=== PATIENT | male | born 1980 | race Caucasian/White ===

== ENCOUNTER 2023-10-14 09:49 | Outpatient (AMB) | payer OTHER, SELFPAY ==
--- NOTE | 2023-10-14 09:50 | A.OFFVIS_ITS ---
Intake Vital Signs 10/14/23 10:08 Height 6 ft 4 in BP 134/80 Blood Pressure Location Lt brachial Position Sitting Pulse 87 Pulse Source Pulse Oximeter Pulse Oximetry (%) 99 Oxygen Delivery Method Room Air Intake Visit Reasons: ENP-Left lower extremity numbess-LVm to c/b to r/s Intake Note: Patient presents for ENP-Left lower extremity numbness. Allergies cephalexin Allergy (Intermediate, Verified 10/14/23 10:07) Rash Keflex Allergy (Unknown, Uncoded 08/13/19 00:00) itching HPI HPI Comments History of Present Illness Details 43 y/o male patient presents for new in- person visit for bilateral lower extremities' numbness. Pt has hx of DVT on Eliquis and referred to vascular but missed the appointment. Pt reports constant, bilateral lower extremities numbness, L>R, from knee to feet. It has been for a while, and he feels the numbness has more progressed lately. Pt also reports lower back pain and knee pain, his primary care ordered Xray but never done. Pt states that something did on his leg to check the leg numbness, but not sure what he had done. Pt states that he walks at home, and uses electric wheelchair for long distance walking. Walking causes more numbness. Denies burning pain on lower extremities. Pt can feel the ground, but his gait is very unsteady due to numbness. Pt has T2 DM, HTN and ILAN on CPAP. Pt reports he uses CPAP nightly. PENDING SALE TO [facility] Social History (Updated 10/08/23 @ 10:30 by Analy Swanson CMA) Alcohol intake: current Comment: Social drinking Patient Tobacco Use Status: Former Tobacco user Review of Systems Const All systems reviewed & are unremarkable except as noted in HPI and below Physical Exam Vital Signs: Last Vital Signs Pulse 87 10/14/23 10:08 BP 134/80 10/14/23 10:08 Pulse Ox 99 10/14/23 10:08 Oxygen Delivery Method Room Air 10/14/23 10:08 Const General: cooperative Nutritional Appearance: obese Orientation/consciousness: patient oriented x3 Limitations: wheelchair Neck Neck: Yes full ROM and Yes supple Resp Effort & Inspection: normal respiratory effort and able to speak in complete sentences Neuro General: patient oriented x3 and Unable to assess gait Cranial nerves: Yes CN's II-XII intact bilaterally Cognition (Neuro): normal cognition Gait exam (Neuro): Unable to assess gait Motor exam (neuro): 5/5 motor strength present throughout, Pronator motor function not present and no tremor noted Deep tendon reflexes (DTR's): Right patellar reflex intensity grade: 0 and Left patellar reflex intensity grade: 0 Psych Appearance: grossly normal Mental Status: mental status grossly normal Speech and movement: Normal speech and movement present Attitude: cooperative Assessment & Plan Assessment & Plan (1) Numbness of both lower extremities: Comment: Left leg more numbness than right leg Code(s): R20.0 - Anesthesia of skin Plan Advised patient to undergo EMG or lower extremities. Advised patient to manage BS, BP well. Coding Level of Care Code New Pt Level 3 (93518) Diagnoses Numbness of both lower extremities R20.0
[2023-10-14 10:08] VITALS: BP 134/80; PULSE 87; O2SAT 99
== END 2023-10-14 10:33 | disposition home or self-care (01) ==
PROVIDERS: PCP Internal Medicine; Visit Provider Nurse Practitioner Family
DX: R20.0 Anesthesia of skin (principal)
CPT/HCPCS: 99203

== ENCOUNTER → 2023-10-14 09:49 | Outpatient (BNVA) | payer OTHER, SELFPAY | PROVIDERS: PCP Internal Medicine; Visit Provider Nurse Practitioner Family | DX: R20.0 Anesthesia of skin (principal) | CPT/HCPCS: 99202 ==

== ENCOUNTER 2023-11-08 13:01 | Outpatient (REF) | payer OTHER, SELFPAY ==
--- NOTE | 2023-11-08 13:06 | EMG_ITS ---
Chief complaint: Bilateral leg numbness History of Klinefelter syndrome, morbid obesity, diabetes, left DVT 2018, on Eliquis. Reason for referral: Evaluate for neuropathy Patient said he had EMG done by Dr. Hoang in August 2023 but report was not available for my review. Referred by: Greg Aguillon NP Procedure done: Bilateral lower extremity NCS/EMG Precautions and/or limitations: On Eliquis The limb temperature was monitored continuously and remained between 32-36 degrees C during the performance of the NCS. Nerve Conduction Studies Anti Sensory Summary Table ?Stim Site NR Onset (ms) Norm Onset (ms) Peak (ms) Norm Peak (ms) O-P Amp (?V) Norm O-P Amp Site1 Site2 Delta-0 (ms) Dist (cm) Rishi (m/s) Norm Rishi (m/s) Left Sural Anti Sensory (Lat Mall) Calf NR <4.0 >5.0 Calf Lat Mall 14.0 Right Sural Anti Sensory (Lat Mall) Calf NR <4.0 >5.0 Calf Lat Mall 14.0 Motor Summary Table ?Stim Site NR Onset (ms) Norm Onset (ms) O-P Amp (mV) Norm O-P Amp iAmp (mV) Amp (1st) (%) Site1 Site2 Delta-0 (ms) Dist (cm) Rishi (m/s) Norm Rishi (m/s) Left Peroneal Motor (Ext Dig Brev) Ankle ? 7.5 <4.0 1.0 >2.5 1.1 100.0 Ankle Ext Dig Brev 7.5 0.0 B Fib ? 20.7 0.8 0.6 80.0 B Fib Ankle 13.2 0.0 >40 Poplt NR Poplt B Fib 0.0 >40 Right Peroneal Motor (Ext Dig Brev) Ankle ? 6.8 <4.0 0.9 >2.5 1.0 100.0 Ankle Ext Dig Brev 6.8 0.0 B Fib ? 18.0 0.3 0.2 33.3 B Fib Ankle 11.2 36.0 32 >40 Poplt ? 22.1 0.4 0.5 44.4 Poplt B Fib 4.1 5.0 12 >40 Left Tibial Motor (Abd Nails Brev) Ankle NR <5 >2.5 Ankle Abd Nails Brev 0.0 Knee NR Knee Ankle 0.0 >40 Right Tibial Motor (Abd Nails Brev) Ankle NR <5 >2.5 Ankle Abd Nails Brev 0.0 Knee NR Knee Ankle 0.0 >40 EMG ?Side Muscle Nerve Root Ins Act Fibs Psw Amp Dur Poly Recrt Int Pat Comment Right AbdHallucis MedPlantar S1-2 Incr 1+ 1+ Nml Nml 0 Nml Complete Right AntTibialis Dp Br Peron L4-5 Nml Nml Nml Nml Nml 0 Nml Complete Right PostTibialis Tibial L5, S1 Nml Nml Nml Nml Nml 0 Nml Complete Right MedGastroc Tibial S1-2 Nml Nml Nml Nml Nml 0 Nml Complete Right VastusMed Femoral L2-4 Nml Nml Nml Nml Nml 0 Nml Complete Left AbdHallucis MedPlantar S1-2 Incr 1+ 1+ Nml Nml 0 Nml Complete FINDINGS: Bilateral peroneal, tibial and sural nerves showed very small, if not absent, responses. Concentric needle EMG was performed in selected muscles of the bilateral lower extremity. Study revealed Signs of electric abnormalities as shown in the table below. Bilateral AH showed increased insertional activity, PSWs and fibrillations. IMPRESSION: 1. This is an abnormal study. 2. There is electrodiagnostic evidence for bilateral symmetric distal sensorimotor polyneuropathy, axonal features. Thank you for your kind referral. Irene Live MD, REGINA Board Certified, [place] [employer] and Rehabilitation (ABPMR) Board Certified, [place] Board of Electrodiagnostic Medicine (ABEM) [place]OD[place] [id number] [facility]
== END 2023-11-08 13:02 | disposition home or self-care (01) ==
LOC: HO.NEURO 13:01
PROVIDERS: Visit Provider Nurse Practitioner Family
DX: R20.0 Anesthesia of skin (principal)
CPT/HCPCS: 95885; 95886; 95909

== ENCOUNTER → 2023-11-08 13:06 | Outpatient (BNV) | payer OTHER, SELFPAY | PROVIDERS: Visit Provider Physical Medicine & Rehabilitation | DX: G62.89 Other specified polyneuropathies (principal) | CPT/HCPCS: 95885; 95886; 95909 ==

== ENCOUNTER 2024-01-21 10:27 | Outpatient (AMB) | payer OTHER, SELFPAY ==
--- NOTE | 2024-01-21 10:32 | MHC.OFFVIS ---
Vital Signs 01/21/24 10:37 Height 6 ft 4 in Intake Visit Reasons: 3 mo f/u-Conf Intake Note: Patient presents for 3 month follow up.patient has no issues or concerns Allergies cephalexin Allergy (Intermediate, Verified 10/14/23 10:07) Rash Keflex Allergy (Unknown, Uncoded 08/13/19 00:00) itching Medication List - Last Reconciled 01/21/24 by LISA Valadez acetaminophen mg PO amitriptyline 100 mg PO DAILY apixaban (Eliquis) 5 mg PO BID blood sugar diagnostic (FreeStyle Lite Strips) As directed cholecalciferol (vitamin D3) 50 mcg PO DAILY clotrimazole 1% 1 appl topical BID diphenhydramine HCl (Benadryl) 25 mg PO BEDTIME PRN duloxetine 60 mg PO DAILY fluconazole 100 mg PO DAILY fluticasone propionate 50 mcg/actuation (Allergy Relief (fluticasone)) 2 sprays intranasal DAILY gabapentin 400 mg PO TID glipizide ER 5 mg PO BID hydrochlorothiazide 12.5 mg PO DAILY ketoconazole 2% 1 appl topical BID ketoconazole 2% 1 appl topical lancets (FreeStyle Lancets) As directed lurasidone mg PO melatonin 5 mg PO BEDTIME metformin 1,000 mg PO BID miconazole nitrate 2% 1 spray topical DAILY mupirocin 2% 1 appl topical BID propranolol ER 160 mg PO DAILY propranolol ER 160 mg PO DAILY semaglutide (Ozempic) mg subcut syringe with needle As directed testosterone cypionate mg IM zinc oxide 13% 1 appl topical BID-QID PRN HPI Comments Details: 43-yr-old male presents for f/u visit of BLE neuropathy. Pt was previously seen by Greg Aguillon NP. Pt denies any significant interval medical changes. Pt states he has decreased sensation which progressed to BLE numbness and pain, L > R. This started after he developed LLE DVT x's 3 in 2019. He states Gabapentin, Amitriptyline do not help. He walks short distances- walks from his apartment from his apartment to his girlfriend's apartment. He states that he has pain when walking, his back gives out, and that then he cannot move for a few days. He is trying to lose weight- but is unsure how he is supposed to do this when he has so much pain. Tried compression stockings- worsened pain. Wonders if he can have an accommodation to not wear shoes and socks when on riding the [place]- as these worsen his foot pain. He was dx'd with diabetes last year. He forgot to do his last 2 Ozempic injections. Notes that he has water leakage after his ozempic injection. The EMG/NCS, October 2023: bilateral symmetric distal sensorimotor polyneuropathy, axonal features. He has not yet had f/u labs, does not think he can do 24 hr urine collection for UPEP. He feels he is more forgetful. He is no longer using his CPAP- last used last year- states he cannot sleep with a full face mask on as he moves around in his sleep. [facility] Social History Alcohol intake: current Comment: Social drinking Patient Tobacco Use Status: Former Tobacco user Review of Systems Const All systems reviewed & are unremarkable except as noted in HPI and below Physical Exam Const General: cooperative and no acute distress Orientation/consciousness: patient oriented x3 HEENT Head: Yes normocephalic Resp Effort & Inspection: normal respiratory effort and able to speak in complete sentences Neuro Other: BLE swelling and distal numbness. Pt sitting upright in power w/c. General: patient oriented x3 Psych Speech and movement: Normal speech and movement present Affect: normal affect Attitude: cooperative Assessment & Plan Assessment & Plan (1) Axonal sensorimotor neuropathy: Code(s): G62.89 - Other specified polyneuropathies Category: Medical (2) Numbness of both lower extremities: Comment: Left leg more numbness than right leg Code(s): R20.0 - Anesthesia of skin Category: Medical Plan Reviewed that bilateral symmetric distal axonal sensorimotor polyneuropathy is likely secondary to diabetes, however would like pt to undergo labs to rule out other common etiologies. Advised pt to review Ozempic injection technique w/ PCP. Stressed importance of optimizing diabetic and CV risk factor control. Encouraged pt to f/u w/ his sleep provider to trial alternate PAP mask and resume CPAP use. Advised pt that I would not recommend him to ride public transportation or go outside without enclosed footwear due to diabetes and marked BLE numbness. For BLE pain- pt already on high dose of amitriptyline, gabapentin dose could be increased however raising dose could induce weight gain and/or fluid retention. Discussed referring pt to [facility] [place] for eval for Qutenza (capsaicin) 8% topical system- pt will consider. f/u upon review of above an din-clinic in 6 months or sooner prn Orders: Orders Hemoglobin A1c 01/21/24 E11.9 - Type 2 diabetes mellitus without complications, E55.9 - Vitamin D deficiency, unspecified, F32.A - Depression, unspecified, G62.89 - Other specified polyneuropathies, Q98.4 - Klinefelter syndrome, unspecified, R20.0 - Anesthesia of skin, R41.3 - Other amnesia, Z86.711 - Personal history of pulmonary embolism Protein Electrophoresis, Serum 01/21/24 E11.9 - Type 2 diabetes mellitus without complications, E55.9 - Vitamin D deficiency, unspecified, F32.A - Depression, unspecified, G62.89 - Other specified polyneuropathies, Q98.4 - Klinefelter syndrome, unspecified, R20.0 - Anesthesia of skin, R41.3 - Other amnesia, Z86.711 - Personal history of pulmonary embolism Rheumatoid Factor 01/21/24 E55.9 - Vitamin D deficiency, unspecified, G62.89 - Other specified polyneuropathies, M54.9 - Dorsalgia, unspecified Homocysteine 01/21/24 E55.9 - Vitamin D deficiency, unspecified, G62.89 - Other specified polyneuropathies, M54.9 - Dorsalgia, unspecified Methylmalonic Acid 01/21/24 E55.9 - Vitamin D deficiency, unspecified, G62.89 - Other specified polyneuropathies, M54.9 - Dorsalgia, unspecified Coding Level of Care Code Est Pt Level 4 (20018) Diagnoses Axonal sensorimotor neuropathy G62.89 Numbness of both lower extremities R20.0
== END 2024-01-21 12:35 | disposition home or self-care (01) ==
PROVIDERS: PCP Internal Medicine; Visit Provider Nurse Practitioner Family
DX: G62.89 Other specified polyneuropathies (principal); R20.0 Anesthesia of skin
CPT/HCPCS: 99214

== ENCOUNTER → 2024-01-21 10:27 | Outpatient (BNVA) | payer OTHER, SELFPAY | PROVIDERS: PCP Internal Medicine; Visit Provider Nurse Practitioner Family ==

== ENCOUNTER 2024-01-21 11:23 | Outpatient (REF) | payer OTHER, SELFPAY ==
[2024-01-21 18:27] LABS: Rheumatoid Factor < 13.0 IU/mL (<15.0)
[2024-01-22 05:15] LABS: Estimated Average Glucose 212 mg/dL
[2024-01-22 21:48] LABS: Prot Elec - Albumin 3.4 g/dL (3.8-4.8); Prot Elec - Alpha1 0.3 g/dL (0.2-0.3); Prot Elec - Alpha2 0.7 g/dL (0.5-0.9); Prot Elec - Beta 1 0.5 g/dL (0.4-0.6); Prot Elec - Beta 2 0.6 g/dL (0.2-0.5); Prot Elec - Gamma 2.1 g/dL (0.8-1.7); Prot Elec - Total Protein 7.6 g/dL (6.1-8.1)
[2024-01-26 05:19] LABS: Methylmalonic Acid 384 nmol/L (87-318)
== END 2024-01-21 11:24 | disposition home or self-care (01) ==
LOC: HO.HKASLDS 11:23
PROVIDERS: Visit Provider Nurse Practitioner Family
DX: G62.89 Other specified polyneuropathies (principal); E11.9 Type 2 diabetes mellitus without complications; Z86.711 Personal history of pulmonary embolism; R41.3 Other amnesia; F32.A Depression, unspecified; E55.9 Vitamin D deficiency, unspecified; Q98.4 Klinefelter syndrome, unspecified; R20.0 Anesthesia of skin; M54.9 Dorsalgia, unspecified
CPT/HCPCS: 36415; 83036; 83921; 84165; 86431; 99212

== ENCOUNTER 2024-02-13 09:11 | Outpatient (REF) | payer OTHER, SELFPAY ==
[2024-02-13 17:53] LABS: MANUAL DIFF FLAG NO
[2024-02-13 18:05] LABS: Basophils Percent Auto 0.6 % (0-2); Eosinophils Absolute Auto 0.3 X10*3/uL (0.0-0.4); Eosinophils Percent Auto 4.6 % (0-4); Hematocrit 45.7 % (42.0-52.0); Hemoglobin 14.8 g/dl (14.0-18.0); Imm Gran Abs Auto 0.04 X10*3/uL (0.00-0.03); Imm Gran Pct Auto 0.6 % (0.0-0.4); Lymphocytes Percent Auto 28.6 % (20-40); Mean Corpuscular HGB Conc 32.4 g/dl (31.0-36.0); Mean Corpuscular Hemoglobin 25.6 pg (27.0-33.0); Mean Corpuscular Volume 79.2 fL (80.0-98.0); Mean Platelet Volume 10.9 fL (9.4-12.4); Monocytes Absolute Auto 0.7 X10*3/uL (0.1-1.2); Monocytes Percent Auto 9.9 % (2-11); Neutrophils Absolute Auto 3.9 x10*3/uL (2.0-8.3); Neutrophils Percent Auto 55.7 % (45-73); Platelet Count 257 X10*3/uL (160-400); Red Blood Count 5.77 X10*6/uL (4.60-5.80); Red Cell Distribution Width 14.3 % (11.0-16.0)
[2024-02-13 18:14] LABS: Alanine Aminotransferase 45 U/L (0-40); Albumin Level 3.5 g/dL (3.5-5.0); Alkaline Phosphatase 148 U/L (39-117); Anion Gap 12 (12-20); Aspartate Amino Transferase 44 U/L (5-37); Bilirubin Total 0.5 mg/dL (0.0-1.0); Blood Urea Nitrogen 6 mg/dL (9-16); Calcium 9.4 mg/dL (8.4-10.2); Carbon Dioxide 30 mmol/L (22-29); Chloride 98 mmol/L (96-108); Estimated Glomerular Filt Rate > 60; Glucose Random 129 mg/dL (60-115); Sodium 136 mmol/L (135-145); Total Protein 7.8 g/dL (6.5-8.0)
[2024-02-13 18:27] LABS: TSH reflex Free T4 1.57 uIU/mL (0.32-4.0)
[2024-02-13 18:41] LABS: Folate 9.3 ng/mL (> or = 4.0); Vitamin B12 384 pg/mL (200-900)
[2024-02-13 18:50] LABS: Erythrocyte Sedimentation Rate 11 MM/HR (0-15)
[2024-02-17 14:54] LABS: Vitamin D 25-OH, D2 <4 ng/mL; Vitamin D 25-OH, D3 43 ng/mL; Vitamin D 25-OH, Total 43 ng/mL (30-100)
[2024-02-21 12:28] LABS: Anti Nuclear Antibody Screen POSITIVE (NEGATIVE)
== END 2024-02-13 09:12 | disposition home or self-care (01) ==
LOC: HO.HKASLDS 09:11
PROVIDERS: Visit Provider Nurse Practitioner Family
DX: G62.89 Other specified polyneuropathies (principal); R20.0 Anesthesia of skin
CPT/HCPCS: 36415; 80053; 82306; 82607; 82746; 84443; 85025; 85652; 86038; 86039

== ENCOUNTER 2024-08-24 10:05 | Outpatient (AMB) | payer OTHER, SELFPAY ==
[2024-08-24 10:31] VITALS: PULSE 89; O2SAT 92
--- NOTE | 2024-08-24 10:31 | A.OFFVIS_ITS ---
Vital Signs 08/24/24 10:31 Height 6 ft 4 in Pulse 89 Pulse Source Pulse Oximeter Pulse Oximetry (%) 92 Oxygen Delivery Method Room Air Intake Visit Reasons: 6 mon follow up Intake Note: Patient interested in getting injections for his back as gabapentin is not working Allergies cephalexin Allergy (Intermediate, Verified 08/24/24 10:33) Rash Keflex Allergy (Unknown, Uncoded 08/13/19 00:00) itching Medication List - Last Reconciled 08/24/24 by LISA Valadez acetaminophen mg PO amitriptyline 100 mg PO DAILY apixaban (Eliquis) 5 mg PO BID blood sugar diagnostic (FreeStyle Lite Strips) As directed cholecalciferol (vitamin D3) 50 mcg PO DAILY clotrimazole 1% 1 appl topical BID diphenhydramine HCl (Benadryl) 25 mg PO BEDTIME PRN duloxetine 60 mg PO DAILY fluconazole 100 mg PO DAILY fluticasone propionate 50 mcg/actuation (Allergy Relief (fluticasone)) 2 sprays intranasal DAILY gabapentin 400 mg PO TID glipizide ER 5 mg PO BID hydrochlorothiazide 12.5 mg PO DAILY ketoconazole 2% 1 appl topical BID ketoconazole 2% 1 appl topical lancets (FreeStyle Lancets) As directed lurasidone mg PO melatonin 5 mg PO BEDTIME metformin 1,000 mg PO BID miconazole nitrate 2% 1 spray topical DAILY mupirocin 2% 1 appl topical BID propranolol ER 160 mg PO DAILY propranolol ER 160 mg PO DAILY semaglutide (Ozempic) mg subcut syringe with needle As directed testosterone cypionate mg IM zinc oxide 13% 1 appl topical BID-QID PRN HPI Comments Details: 44-yr-old male presents for f/u visit of BLE neuropathy. Pt reports he stopped Abilify as it was affecting his memory, which has been better since stopping it. He also reports that he switched from ozempic to monjauro, as ozempic was not ef fective enough. His HgA1C in January was 9%, he is not sure what his current HgA1C is- states he does not know what this means. He states his legs are worse. Pt continues to have BLE numbness and pain, L > R. This started after he developed LLE DVT x's 3 in 2019. Earlier today, he was standig with his RLE up on his toilet, to allow his to wipe himself, when his left knee became stuck/locked and he almost fell. He notes either leg can lock when he is sitting or standing or walking. He has chronic entire back pain- he states it is shooting, burning, spasms, which starts in cervical and upper back around 2pm and then becomes his whole back. Denies pain radiating down his legs. When the pain is worse, he goes and lays down and just passes out . He has not had back imaging before. Interval lab work was notable positive DOMINGO 1:1280 w/ Cytoplasmic, Reticular/AMA. Review patient was referred to Rheumatology, however has not received an appointment yet. 01/21/24 02/13/24 11:30 09:18 WBC 7.0 RBC 5.77 Hgb 14.8 Hct 45.7 MCV 79.2 L MCH 25.6 L Plt Count 257 Sodium 136 Potassium 4.0 Chloride 98 Anion Gap 12 BUN 6 L Creatinine 0.82 Estimated GFR > 60 Random Glucose 129 H Estimat Average Glucose 212 Hemoglobin A1c % 9.0 H Calcium 9.4 Total Bilirubin 0.5 AST 44 H ALT 45 H Alkaline Phosphatase 148 H Total Protein 7.8 Total Protein (PEP) 7.6 Albumin 3.5 Albumin (PEP) 3.4 L Yjica-7-Qwfsmkwnh 0.3 Xakyf-9-Uvuiyedlx 0.7 Aymv-7-Clhbnost 0.5 Wbic-8-Tiorshwo 0.6 H Gamma Globulins 2.1 H Vitamin B12 384 Methylmalonic Acid 384 H 25-OH Vitamin D Total 43 Folate 9.3 TSH 1.57 Rheumatoid Factor < 13.0 DOMINGO Screen POSITIVE A DOMINGO Titer 1:1280 H DOMINGO Pattern Cytoplasmic, Reticular/AMA BLE EMG/NCS, October 2023: bilateral symmetric distal sensorimotor polyneuropathy, axonal features. He is no longer using his CPAP- last used last year- states he cannot sleep with a full face mask on as he moves around in his sleep. [facility] Medical History Positive DOMINGO (antinuclear antibody) Social History Alcohol intake: current Comment: Social drinking Patient Tobacco Use Status: Former Tobacco user Physical Exam Vital Signs: Last Vital Signs Pulse 89 08/24/24 10:31 Pulse Ox 92 08/24/24 10:31 Oxygen Delivery Method Room Air 08/24/24 10:31 Const General: cooperative and no acute distress Orientation/consciousness: patient oriented x3 HEENT Head: Yes normocephalic Resp Effort & Inspection: normal respiratory effort and able to speak in complete sentences Neuro Other: BLE swelling and distal numbness. Pt sitting upright in power w/c. General: patient oriented x3 Psych Speech and movement: Normal speech and movement present Affect: normal affect Attitude: cooperative Assessment & Plan Assessment & Plan (1) Axonal sensorimotor neuropathy: Code(s): G62.89 - Other specified polyneuropathies Category: Medical (2) Numbness of both lower extremities: Comment: Left leg more numbness than right leg Code(s): R20.0 - Anesthesia of skin Category: Medical (3) Cervicalgia: Code(s): M54.2 - Cervicalgia Category: Medical (4) Back pain: Code(s): M54.9 - Dorsalgia, unspecified Category: Medical Plan Bilateral symmetric distal axonal sensorimotor polyneuropathy is likely secondary to diabetes, however lab work revealed low norm serum vitamin B-12 level w/ el;evated MMA level and positive DOMINGO. Encouraged pt to continue to optimize his diabetic control w/ his PCP. Will re-request rheumatology consult. Will obtain paredes-spine XR (cervical, thoracic, and lumbar)- he will do at [facility] per his request- advised he will need to bring copy oif CDs to his f/u appt w/ us and rheumatology. Start Vitamin B-12 500mcg po daily supplement. Continue amitriptyline, gabapentin, however would not raise doses, as this can induce weight gain and/or fluid retention. Future considerations: PT, referal to [facility] [place] pain management for eval for Qutenza (capsaicin) 8% topical system. Pt to follow-up in 6 months or sooner prn. Orders: Orders XR thoracic spine 3V Today M54.9 - Dorsalgia, unspecified XR cervical spine 4V Today M54.2 - Cervicalgia XR lumbar spine 2-3V Today M54.9 - Dorsalgia, unspecified Referrals Rheumatology Referral G62.89 - Other specified polyneuropathies, R76.8 - Other specified abnormal immunological findings in serum Medications: New cyanocobalamin (vitamin B-12) 500 mcg PO DAILY 30 days 30 tabs 6RF Coding Level of Care Code Est Pt Level 4 (16344) Diagnoses Axonal sensorimotor neuropathy G62.89 Numbness of both lower extremities R20.0 Cervicalgia M54.2 Back pain M54.9
--- OUTSIDE RECORDS SUMMARY | 2024-08-24 11:03 | XMS_ITS | Patient Health Record ---
Author Organization [facility] Address [address] [place] [address] Care Team Providers Care Support Architect Name Role Phone JULIANE MILES Unavailable [phone] REASON FOR REFERRAL No Information PLAN OF TREATMENT No Information Insurance Providers Payer Name Payer Address Payer Phone Subscriber Number Group Number Insured Name Patient Relationship to Insured Coverage Start Date Coverage End Date [employer] or Options [address] [place] [id number] VISHAL GIBBS Self - patient is the insured
--- OUTSIDE RECORDS SUMMARY | 2024-08-24 11:03 | XMS_ITS | Continuity of Care Document ---
Author Organization [employer] [place] [facility] [employer] Address [address] [place] [id number] Care Team Providers Care Radiologic Technology Instructor Name Role Phone HIM CCA OTHER RASTA FRANCO Primary Care Provider Assessment No assessment recorded. Plan of Treatment Reminders Order Date Submit Date Provider Last Modified By Organization Details Last Modified Time Details Appointments None record ed. Lab None record ed. Referral None record ed. Procedures None record ed. Surgeries None record ed. Imaging None record ed. Medication Orders None record ed. Patient TargetsNo targets recorded. Patient InstructionsNo instructions recorded. Reason for Referral None Reported. Medical Equipment None Reported. Allergies Allergen ID Allergen Name Allergen Category Reaction Reaction Severity Criticality Documentation Date Start Date Code Code System Note Provider Name and Address Organization Details Recorded Time 6524 cephalexi n medicatio n Not available Not available Not available 06/03/2024 2231 RxNorm Not Available [employer] - production 4 03:37:48 Medications Name Sig Start Date Stop Date Status Note LastModified by Organization Details LastModified Time amoxicillin 500 mg capsule TAKE 1 CAPSULE BY MOUTH EVERY 8 HOURS UNTIL FINISHED active Not Available Not Available No t Available metformin 500 mg tablet active Not Available Not Available Not Available acetaminophe n 325 mg tablet Take 1 tablet every 6 hours by oral route. 2022 active Not Available Not Available Not Avai lable prednisone 10 mg tablet TAKE 4 TABS DAILY X2DAYS, 3 TABS DAILY X2DAYS, 2 TABS DAILY X2DAYS, AND 1 TAB DAILY X2DAYS active Not Available Not Available No t Available propranolol ER 160 mg capsule,24 hr,extended release active Not Available Not Available Not Available ketoconazole 2 % shampoo APPLY TO SCALP TWICE WEEKLY, LEAVE ON 5 MINUTES THEN WASH OFF active Not Available Not Available No t Available azithromycin 250 mg tablet TAKE 2 TABLETS BY MOUTH TODAY, THEN TAKE 1 TABLET DAILY FOR 4 DAYS DIRECTED active Not Available Not Available No t Available FreeStyle Lancets 28 gauge active Not Available Not Available Not Available gabapentin 400 mg capsule active Not Available Not Available Not Available glipizide ER 5 mg tablet, extended release 24 hr TAKE 1 TABLET BY MOUTH EVERY DAY active Not Available Not Available No t Available clobetasol 0.05 % topical cream APPLY TO AFFECTED AREAS ON SCALP TWICE A DAY , DECREASE SYMPTOMS IMPROVE active Not Available Not Available No t Available melatonin 3 mg tablet active Not Available Not Available No t Available acetaminophe n 300 mg-codeine 30 mg tablet TAKE 1 TABLET BY MOUTH EVERY 6 HOURS NEEDED FOR PAIN active Not Available Not Available No t Available amitriptylin e 50 mg tablet TAKE 1 TABLET BY MOUTH EVERYDAY AT BEDTIME active Not Available Not Available No t Available acetaminophe n 500 mg tablet TAKE 1 TABLET BY MOUTH EVERY 4 TO 6 HOURS NEEDED active Not Available Not Available No t Available butalbital-a cetaminophen -caffeine 50 mg-325 mg-40 mg tablet active Not Available Not Available No t Available terbinafine HCl 250 mg tablet TAKE 1 TABLET BY MOUTH EVERY DAY active Not Available Not Available No t Available Hypodermic [place] 18 gauge x 1 1/2 USE DIRECTED active Not Available Not Available No t Available doxycycline monohydrate 100 mg capsule TAKE 1 CAPSULE BY MOUTH TWICE A DAY FOR 7 DAYS active Not Available Not Available No t Available metformin 1,000 mg tablet active Not Available Not Available Not Available dexamethason e 4 mg tablet TAKE 1 TABLET BY MOUTH TWICE A DAY FOR 5 DAYS active Not Available Not Available No t Available hydrochlorot hiazide 12.5 mg capsule active Not Available Not Available N ot Available testosterone cypionate 200 mg/mL intramuscula r oil INJECT 1 ML (200MG) INTRAMUSCUL SELAM ONCE EVERY 14 DAYS active Not Available Not Available No t Available ibuprofen 600 mg tablet TAKE 1 TABLET BY MOUTH EVERY 8 HOURS. active Not Available Not Available No t Available levofloxacin 750 mg tablet TAKE 1 TABLET BY MOUTH EVERY 24 HOURS FOR 5 DAYS active Not Available Not Available N ot Available ketoconazole 2 % topical cream APPLY TO FACE, NECK, EARS, AND FEET TWICE A DAY active Not Available Not Available No t Available fluticasone propionate 50 mcg/actuatio n nasal spray,suspen vernon USE 2 SPRAYS IN EACH NOSTRIL ONCE DAILY active Not Available Not Available N ot Available BD Luer-Lizett Syringe 3 mL 22 x 1 1/2 USE DIRECTED active Not Available Not Available No t Available amoxicillin 500 mg-potassium clavulanate 125 mg tablet TAKE 1 TABLET BY MOUTH THREE TIMES A DAY active Not Available Not Available Not Available Ventolin HFA 90 mcg/actuatio n aerosol inhaler INHALE 2 PUFFS BY MOUTH EVERY 4 HOURS NEEDED FOR WHEEZING FOR SHORTNESS OF BREATH OR COUGH active Not Available Not Available No t Available oxycodone 5 mg tablet TAKE 1 TABLET BY MOUTH EVERY 8 HOURS NEEDED FOR SEVERE BREAKTHROUG H PAIN. active Not Available Not Available No t Available neomycin-july ymyxin-hydro juan 3.5 mg-10,000 unit/mL-1 % ear drops,susp INSTILL 1 DROP IN RIGHT EAR 3 TIMES A DAY active Not Available Not Available Not Available topiramate 50 mg tablet TAKE 1 TABLET BY MOUTH AT BEDTIME FOR 1 WEEK THEN TAKE 1 TABLET BY MOUTH TWICE A DAY DIRECTED active Not Available Not Available No t Available duloxetine 60 mg capsule,gaurav yed release active Not Available Not Available Not Available Chest Congestion Relief 400 mg tablet TAKE 1 TABLET BY MOUTH EVERY 6 HOURS active Not Available Not Available No t Available BD Integra Syringe 3 mL 22 gauge x 1 1/2 PLEASE SEND A 90 DAY SUPPLY active Not Available Not Available No t Available BD SafetyGlide Needle 18 gauge x 1 1/2 TO DRAW UP TESTOSTERON E EVERY 2 WEEKS active Not Available Not Available No t Available FreeStyle Lite Strips active Not Available Not Available Not Available melatonin 5 mg tablet active Not Available Not Available No t Available cholecalcife rol (vitamin D3) 50 mcg (2,000 unit) tablet active Not Available Not Available Not Available lurasidone 40 mg tablet active Not Available Not Available Not Available Aerochamber Plus Flow-Vu USE DIRECTED WITH ALL INHALORS. DX: ASTHMA. active Not Available Not Available Not Available Eliquis 5 mg tablet active Not Available Not Available Not Available Mucus-Chest Congestion 100 mg/5 mL oral liquid TAKE 5ML BY MOUTH EVERY 6 HOURS NEEDED FOR COUGH active Not Available Not Available No t Available Flowflex COVID-19 Antigen Home Test kit USE DIRECTED active Not Available Not Available No t Available Vitals Date Recorded Body weight Heart rate Body temperature Respiratory rate Body height Oxygen saturation Oxygen saturation in Arterial blood by Pulse oximetry Systolic blood pressure Diastolic blood pressure Provider Name and Address Organization Details Last Updated DateTime 4 116827. 888 g 89 /min 97.9 [degF] 18 /min 193.04 cm 96 % 96 % 144 mm[Hg] 86 mm[Hg] Not Available [facility] - production 19:44:47 Social History None recorded. Functional Status None recorded. Mental Status None recorded. Family History Nothing Reported. Medical History No medical history recorded. Past Encounters Encounter ID Performer Location Encounter Start Date Encounter Closed Date Diagnosis/Indication Diagnosis SNOMED-CT Code Diagnosis ICD10 Code Diagnosis Note [id number] JEAN MARIE WEBB MD [facility] [address] [place] [phone] 06/03/2024 19:44:44 06/03/2024 21:34:27 Chronic pain syndrome 325490062 G89.4 Evaluation in the field was performed by my pantographer colleague, as noted above, I provided real-time direction and supervisio n for this visit. The evaluation revealed a 44-year-ol d male with a history of diabetes, COPD/asthm a, hypertensi on, chronic DVT on Apixaban BID, chronic neck pain with radiation to the lower back and sciatica, and neuropathy with leg and foot numbness for more than one year. The patient is prescribed gabapentin 600 mg QID by his primary care physician and Tylenol, which he states does not help, so he stopped taking it. He reports ongoing pain rated at 10/10, which is his usual level of pain. He denies any new trauma, saddle anesthesia , or bladder or bowel incontinen ce. He reports that he has had x-rays of his back but never of his neck and is not currently followed by orthopedic s or a pain clinic. He denies fevers, chills, chest pain, or shortness of breath. VS stableAlle rgies reviewed Impression :Chronic pain Plan:-Unfo rtunately, the patient is on Apixaban, so he is not a candidate for Ketorolac. He is already taking gabapentin for his neuropathy . He would benefit from seeing a pain specialist or an orthopedic forest fire specialist supervisor if he has not done so already. Notificati on has been sent to the [facility] to send a message to the neonatal critical care nurse, who can request a referral to the pain clinic or orthopedic s for the patient.-T he patient was offered Benadryl to help with sleep tonight. He reports that his primary care physician has prescribed it, and he takes 25 mg but does not find it effective. The prescripti on is for 1-2 tablets at bedtime, so the patient was encouraged to try taking 2 tablets to see if it helps with his sleep.-Red flags were discussed with the patient. Primary care, consider__ _ Dispositio n: We discussed the diagnostic uncertaint y of home visits and the risk associated with this. In this case, the patient and I felt this to be an acceptable and reasonable amount of risk given the benefit of avoiding an ED visit. We discussed the need to seek care urgently/e mergently in the setting of any new or worsening serious symptoms, particular ly Worsening pain, weakness, saddle anesthesia , incontinen ce of bladder or bowel, decreased strength, difficulty ambulating , fever, chills, chest pain , shortness of breath , or any other concerns. Health Concerns Section Related Observation LastModified by Organization Detai ls LastModified Time None Recorded Concern Status LastModified by Organization Details LastModified Time None Recorded Payers Encounter Date Sequence Insurance Name Policy Number Policy Andujar Covered Member ID Andujar Member ID Guarantor Name 06/03/2024 1 [facility] - DOS ON OR AFTER 2022 - DUAL ELIGIBLE - RETIREMENT OPTIONS AND ONE CARE (MEDICARE REPLACEMENT/AD VANTAGE - HMO) Clem Fuentes [id number] Clem Fuentes Notes Date Note Type Note Provider Name and Address Organization Details Recorded Time 06/03/2024 text/html [facility] Nurse Triage Notes (Ro Hoffmann): Reason For Request: Pain Chief Complaints: Pain PMH: Diabetes, COPD/Asthma, Hypertension Allergies: Cephalexin Pain Assessment: Level 10 out of 10 Comments: Lead Net Software Developer verified the member's name//address and phone number. Member reporting 10/10 back pain. Minimal relief with gabapentin and Tylenol. Member reports chronic pain from neck to lower back >1 year. Reports ongoing issue w/ sciatic nerve. Denies any falls at home.Denies headache, reports regular urination/bowel habits. Denies hx of kidney dz. Reports to be taking Eliquis BID.Pt denies fevers, CP, SOB at home. Education provided on the response time and the member was advised to monitor reported s/s and seek emergency treatment if needed. ..................... ..................... ..................... ..................... ..................... ..................... ............... Blade Grinder Note From Melanie Dong: Sent to a call for a pt complaining of back pain. [facility] arrives on scene, pt is alert and oriented, airway is patent. Pt complains of chronic neck/back pain. Allergies verified: Cephalexin. Pt is prescribed Tylenol and Gabapentin for pain, but neither take care of the pain. Pt takes Eliquis, so is unable to take Nsaids. Pt is also prescribed Diphenhydramine 25-50mg at bed time for sleep. Pt states his pain radiates from his neck down his entire back. Pt states pain is 10/10 and is unchanged from usual pain. Pt also states he had limited sensation in lower extremities due to neuropathy. Pt denies crocker, dizziness, cp, sob, n/v/d, abd pain, fever, or loc. Pt is advised we are unable to offer any pain medication as we only carry nsaids and Tylenol. Pt denies having a pain doctor, and states he does not know his neonatal critical care nurse. BP:144/86, P: 89, RR:18, SpO2:96% RA, T:97.9; Head: unremarkable; Lung sounds: clear bilaterally; Abdomen: soft, non-tender, no distention; Back: no deformities noted; Extremities: limited sensation in lower extremities at baseline; Skin: pink, warm, dry; [facility] consulted and will send note to neonatal critical care nurse. Pt advised to take Diphenhydramine 50mg to help him sleep as pt states he usually only takes 25mg. Red flags discussed. Pt has no further questions. ..................... ..................... ..................... ..................... ..................... ..................... ............... Disposition: Fulfilled JEAN MARIE WEBB MD [address] [place] [address],[address], [place], [phone], [employer], RY 06/03/2024 20:44:30
--- OUTSIDE RECORDS SUMMARY | 2024-08-24 11:03 | XMS_ITS | Data Portability ---
Author Organization [facility], Or in [employer] Address [address] [place] [id number] Care Team Providers Care Cutting Machine Operator Name Role Phone HIM CCA OTHER RASTA FRANCO Primary Care Provider Assessment Encounter Date Assessment Date Assessment LastModified by Organization Details LastModified Time 01/23/2023 01/23/2023 42 YOM with [facility] daily, being seen for swelling above the right eye that does cause minimal swelling to R eye. Discussed red flag symptoms such as pain into eye, pain with eye movement or increasing swelling that should prompt ED visit. Will cover with Doxycycline for possible cellulitis. [email or web address] Not available 01/23/2023 16:06:21 05/07/2023 05/07/2023 I have reviewed and agree with the assessment and plan as documented by the shuttle threader. I provided real-time medical direction for this encounter and was immediately available to provide additional phone-based assistance as needed. 43M with right forearm pain x 1 month. No trauma or injury. Pt was seen at [facility] and xrays were negative. Pt was using Tylenol q 8 hours with good relief, but ran out last week. Today pain is 8.5/10. Pt well appearing, no distress. Describes pain at rest. Pain to right forearm, without obvious deformation. No skin changes, no swelling, no bruising. Full ROM noted. Overall, no obvious findings on examination, and pt is well appearing. Will treat symptomatically with rest, ice, tylenol. Pt requesting Tylenol, will provide one dose. Rx sent. Red flags and return precautions discussed. [email or web address] Not available 05/07/2023 19:30:49 12/04/2023 12/04/2023 I provided real -time medical direction via phone for this encounter and was available for additional phone-based assistance as needed. I have reviewed and agree with the Assessment and Plan as documented by the Electrical Line Mechanic. Patient given the opportunity to ask questions. Our service contacted for an assessment of: pain mangement As per above, patient With issues of chronic pain management. Unfortunately cannot take Toradol and other options that this service has our what he is already doing. Main issue is not sleeping well and decrease in functional status. Per shuttle threader on the scene, Vital signs are stable, afebrile, nontoxic. Impression and plan: Chronic pain management. Will contact team and have follow-up in regards to a possible physical medicine rehabilitation consult for symptom management as well as to increase functional status. We will leave Benadryl at 50 mg tonight a test might be an option for him on a short-term basis to help with sleep management. We discussed the diagnostic uncertainty of home visits and the risk associated with this. In this case, the patient and I felt this to be an acceptable and reasonable amount of risk given the benefit of avoiding an ED visit. We discussed the need to seek care urgently/emergentl y in the setting of any new or worsening serious symptoms [email or web address] Not available 12/04/2023 21:00:08 Plan of Treatment Reminders Order Date Submit Date Provider Last Modified By Organization Details Last Modified Time Details Appointments None recorded. Lab None recorded. Referral None recorded. Procedures None recorded. Surgeries None recorded. Imaging None recorded. Medication Orders doxycycline monohydrate 100 mg capsule 2022 023 [email or web address] Not available 3 15:06:59 doxycycline monohydrate 100 mg capsule 2022 023 [facility]armacy #[id number], [address] [place], [address], 3 15:07:59 acetaminoph en 325 mg tablet 2022 023 [facility]/Pharmacy #[id number], [address] [place], [address], 3 19:30:53 Patient TargetsNo targets recorded. Patient InstructionsNo instructions recorded. Reason for Referral None Reported. Medical Equipment None Reported. Allergies Allergen ID Allergen Name Allergen Category Reaction Reaction Severity Criticality Documentation Date Start Date Code Code System Note Provider Name and Address Organization Details Recorded Time 6540 cephalexi n medicatio n Not available Not available Not available 06/03/2024 2231 Rx[facility] Not Available [facility] - [facility] 4 03:37:48 Medications Name Sig [...] Available Not Available No t Available Hypodermic Bath 18 gauge x 1 1/2 USE DIRECTED [...] Available No t Available Vitals Date Recorded Heart rate Body temperature Respiratory rate Oxygen saturation Oxygen saturation in Arterial blood by Pulse oximetry Body weight Systolic blood pressure Diastolic blood pressure Provider Name and Address Organization Details Last Updated DateTime 3 88 /min 98.2 [degF] 18 /min 96 % 96 % 570752. 376 g 158 mm[Hg] 94 mm[Hg] Not Available [facility] [place] 3 15:01:53 Date Recorded Oxygen saturation Oxygen saturation in Arterial blood by Pulse oximetry Body weight Heart rate Body height Respiratory rate Systolic blood pressure Diastolic blood pressure Provider Name and Address Organization Details Last Updated DateTime 3 96 % 96 % 371063. 336 g 84 /min 193.04 cm 16 /min 159 mm[Hg] 88 mm[Hg] Not Available [facility] 3 19:25:43 Date Recorded Heart rate Respiratory rate Oxygen saturation Oxygen saturation in Arterial blood by Pulse oximetry Body weight Body temperature Systolic blood pressure Diastolic blood pressure Provider Name and Address Organization Details Last Updated DateTime 4 88 /min 16 /min 96 % 96 % 679929. 28 g 97.5 [degF] 164 mm[Hg] 82 mm[Hg] Not Available [facility] [place] 4 20:51:27 Date Recorded Body weight Heart rate Body temperature Respiratory rate Body height Oxygen saturation Oxygen saturation in Arterial blood by Pulse oximetry Systolic blood pressure Diastolic blood pressure Provider Name and Address Organization Details Last Updated DateTime 4 055420. 888 g 89 /min 97.9 [degF] 18 /min 193.04 cm 96 % 96 % 144 mm[Hg] 86 mm[Hg] Not Available [facility] - production 4 19:44:47 Date Recorded Heart rate Oxygen saturation Oxygen saturation in Arterial blood by Pulse oximetry Body height Body temperature Respiratory rate Body weight Heart rate Oxygen saturation Oxygen saturation in Arterial blood by Pulse oximetry Respiratory rate Body height Body weight Body temperature Systolic blood pressure Diastolic blood pressure Systolic blood pressure Diastolic blood pressure Provider Name and Address Organization Details Last Updated DateTime 2 78 /min 96 % 96 % 193.04 cm 97.7 [degF] 20 /min 122241. 4 g 78 /min 96 % 96 % 20 /min 193.04 cm 725419. 4 g 97.7 [degF] 136 mm[Hg] 67 mm[Hg] 136 mm[Hg] 67 mm[Hg] Not Available [facility] 2 16:02:16 Social History None recorded. Functional Status None recorded. Mental Status None recorded. Family History Nothing Reported. Medical History No medical history recorded. Past Encounters Encounter ID Performer Location Encounter Start Date Encounter Closed Date Diagnosis/Indication Diagnosis SNOMED-CT Code Diagnosis ICD10 Code Diagnosis Note [id number] Rosa Charles MD Main - [facility] [address] 03/26/2022 15:31:15 04/19/2022 11:55:46 Pain in right arm 634887651 M79.601 diffuse right arm pain x1 mo; worse with clenching fist. no mottling/c hange in color/no change in palpated temp of extremitie s. using hand/arm exacerbate s pain. Pain deep inside denies burning/el ectric sensations . no swollen/ho t joints.unc lear driver trainee of pain but reassuring ly no evdience of an infectious , hypoperfus ion issue or of atypical chest pain. suspect this is related to use of scooter based on descriptio n. Will assist pt in reaching out to PCP as he has reportedly been unable to do so. [id number] Howie Watson MD Main - [facility] [address] [place] [phone] 01/23/2023 15:01:41 01/24/2023 11:01:17 Cellulitis of forehead [id number] L03.211 [id number] Angelika Maravilla MD Main - [facility] [address] [place] [phone] 05/07/2023 19:25:42 05/08/2023 11:58:55 Pain in right arm 986339180 M79.601 [id number] Cielo Alcazar MD Main - [facility] [address] [place] [phone] 12/04/2023 20:51:23 12/05/2023 11:15:19 Pain self-management deficit, chronic 84863719 F45.42 [id number] JEAN MARIE WEBB MD Main - [address] [phone] 06/03/2024 19:44:44 06/03/2024 21:34:27 Chronic pain syndrome 364848368 G89.4 Evaluation in the field was performed by my shuttle threader colleague, as noted above, I provided real-time [...] seeing a pain specialist or an orthopedic software quality assurance specialist if he has not done so already. Notificati on has been sent to the [facility] to send a message to the healthcare science specialist, who can request a referral to the [...] by Organization Details LastModified Time None Recorded Advance Directives Directive None Recorded Payers Encounter Date Sequence Insurance Name Policy Number Policy Andujar Covered Member ID Andujar Member ID Guarantor Name 03/26/[address] [facility] - DOS PRIOR TO 2022 - DUAL ELIGIBLE (MEDICARE REPLACEMENT/AD VANTAGE - HMO) Clem Fuentes [id number] Clem Fuentes 01/23/[address] [facility] - DOS ON OR AFTER 2022 - DUAL ELIGIBLE - [facility] [employer] AND ONE [employer]ARE (MEDICARE REPLACEMENT/AD VANTAGE - HMO) Clem Fuentes [id number] Clem Fuentes 05/07/2023 [facility] DOS ON OR AFTER 2022 - DUAL ELIGIBLE - [facility] [employer] AND ONE CARE (MEDICARE REPLACEMENT/AD VANTAGE - HMO) Clem Fuentes [id number] Clem Fuentes 12/04/[address] [facility] - DOS ON OR AFTER 2022 - DUAL ELIGIBLE - [facility] [employer] AND ONE CARE (MEDICARE REPLACEMENT/AD VANTAGE - HMO) Clem Fuentes [id number] Clem Fuentes 06/03/[address] [facility] - DOS ON OR AFTER 2022 - DUAL ELIGIBLE - [facility] OPTIONS AND ONE CARE (MEDICARE REPLACEMENT/AD [facility] Clem Fuentes [id number] Clem Fuentes Notes Date Note Type Note Provider Name and Address Organization Details Recorded Time 03/26/2022 text/html CRC Nursing Assessment: Reason For Request: Right arm pain Denies: History of cellulitis, isolated redness noted Fever and chills noted in setting of wound Rash Bites -bugs, spider Abscess Chief Complaints: Pain PMH: Diabetes Allergies: Other Comments: Allergies: Keflex Member calling in to place a self referral. C/o severe right arm pain, member is a vague historian. He was unsure when pain started, then said x1 month. Has called PCP office but no answer. Denies falls, trauma or muscle strain, unsure whether there is redness, warmth or swelling, does have poor ROM. He has not tried any OTC medications. States he can't take the pain and needs something. ..................... ..................... ..................... ..................... ..................... ..................... ............... Electrical Line Mechanic Note: Sent to a call for a pt complaining of right arm pain. SC8 arrives on scene, pt found lying on bed. Pt is alert and oriented. Airway is patent. Pt complains of worsening right arm pain over the last month. Pt denies any trauma to extremity or similar pain in the past. No deformities, edema, erythema, wounds, or change in color noted on arm or hand. Pain worsens with movement and clenching fist. Extremity is euthermic, and has (+PMS). Limited mobility due to pain. Pt denies pain with palpation. Pt complains of similar pain in left arm, but no change in range of motion in left arm. BP:136/67, P:78, RR:20, SpO2:96% RA, T:97.7; Skin is PWD. Pt denies taking Tylenol for pain, and states he is unable to take Ibuprofen or Motrin due to being on Eliquis. [facility] orders Tylenol 1gm PO and will reach out to care team to request an appt with PCP for further follow up/treatment plan. Pt advised to take Tylenol 1gm q6hrs as needed for pain. Acetaminophen 1gm administered without incident. Red flags discussed. Pt has no further questions. ..................... ..................... ..................... ..................... ..................... ..................... ............... Disposition: Fulfilled Rosa Charles MD [address] [place] [address],[address], [place], [phone], [employer] 03/26/2022 23:18:55 01/23/2023 text/html HPI: 42 y.o. M c/o R eye swelling and general fatigue today. He denies getting any foreign object/chemical in his eye and believes he may be allergic to a dog. Mbr denies any acute vision change, fever, eye drainage or redness of eyelids or sclera. His eye is not swollen to the point where it is almost shut. Mbr c/o 6/10 pain around R eye. He tried generic fioricet, which he takes for migraines, but it did not give him relief. Mbr states he cannot take NSAIDs because he is on eliquis. He has also tried heat and ice without any major improvement. Mbr agreed to [facility] eval. He was advised if he develops acute change in vision he should get ER eval. Mbr was made aware he can call the [facility] 11/03 for any new or worsening s/sx. PMHx includes PE, chronic resp failure, lactic acidemia, ILAN, nontoxic goiter, morbid obesity, w/c dependent. ..................... ..................... ..................... ..................... ..................... ..................... ............... CRC Nursing Assessment: Comments: CRC RN DID NOT NEED FURTHER INFO ..................... ..................... ..................... ..................... ..................... ..................... ............... Electrical Line Mechanic Note From Vikas Mendoza: Pt presents A@Ox4. [place] warm and dry. Pt c/o swelling above right eye only with pain for 3 days. Pt Sts not getting better and hasnt taken any meds for relief. Pt denies CP SOB Fever hives nausea or vomiting. Baseline vitals assessed and recorded. Vitals stable. Eye assessed . Swelling visible above right eye and tender upon palpation . Neg for lacs/abrasions, redness or rash. Neg puss or drainage or redness in eye. [facility] contacted and 100mg doxy given PO and RX for doxy called in. Pt advised to follow up with PCP if symptoms persist. Pt educated on signs that would indicate the ER Electrical Line Mechanic Allergies: Cephalexin ..................... ..................... ..................... ..................... ..................... ..................... ............... Disposition: Fulfilled Howie Watson MD [address] [place] [address],[address], [place], [address], [facility] 01/23/2023 16:32:52 05/07/2023 text/html CRC Nursing Assessment: Chief Complaints: Pain PMH: Diabetes, COPD/Asthma, Hypertension Allergies: Cephalexin Pain Assessment: Level 8 out of 10 Comments: Exacerbation to right arm since yesterday. X-ray taken 1 month at [facility]. No trauma or injuries. Ran out of Tylenol 325mg last week. Tylenol was helping to alleviate pain. ..................... ..................... ..................... ..................... ..................... ..................... ............... Electrical Line Mechanic Note From Deon Clayton: Pt reports intermittent 8.5/10 right forearm pain for about one month. Pt was seen at [facility] ED one month ago, negative x-rays, prescribed APAP 325 mg q8h and he ran out last week. Pt sts APAP was treating the pain effectively. Pt sts there was never a precipitating event, ie no injury or suspected cause. Pt also goes on to say that sometimes the pain ? jumps? to his left forearm. Pt is requesting more APAP today. Pt is alert, NAD. VSS. Afebrile. Neuro exam normal, possibly some baseline cognitive delay. Lungs CTA. No ecchymosis, erythema, or edema. Pt has strong pulses and full ROM in both arms. Pt treated with APAP 500 mg PO and [facility] sent rx to pharmacy. Pt instructed to f/u with PCP tomorrow. ..................... ..................... ..................... ..................... ..................... ..................... ............... Disposition: Fulfilled Angelika Maravilla MD [address] [facility],[address], [place], [address], [facility] 05/07/2023 22:08:56 12/04/2023 text/html CRC Nurse Triage Notes (Zo Tena): Chief Complaints: Pain PMH: Diabetes, COPD/Asthma, Hypertension Allergies: Cephalexin Pain Assessment: Level 8 out of 10 Comments: Shop Firer/Fireman verified name//address. Member reports body pain all over, especially back. Exacerbation of pain with position changes. Difficulty sleeping due to pain. Pain comes and goes over the past week. States he is unable to reach PCP. Took APAP 650mg today. ..................... ..................... ..................... ..................... ..................... ..................... ............... Electrical Line Mechanic Note From Vikas Mendoza: Pt co all over body pain that is not letting him sleep. Pt was on meletonin which helped however has run out of script. Pt sts pain is not from sickness but from neuropathy and neck nerve pain. Pt sts on thinners. Eliquis. Pt sts just wants to be able to sleep. Pt denies cp sob NVD fevers. Pt denies blurry vision or dizziness. Baseline vitals assessed. C contacted and 50mg Benadryl given. Pt education on signs indicating the ER. Pt advised to follow up with pcp. Electrical Line Mechanic Allergies: Cephalexin ..................... ..................... ..................... ..................... ..................... ..................... ............... Disposition: Fulfilled Cielo Alcazar MD [address] [place] [address],[address], [place], [address], [facility] 12/04/2023 21:01:21 06/03/2024 text/html CRC Nurse Triage Notes (Ro Hoffmann): Reason For Request: Pain Chief Complaints: Pain PMH: Diabetes, COPD/Asthma, Hypertension Allergies: Cephalexin Pain Assessment: Level 10 out of 10 Comments: Shop Firer/Fireman verified the member's name//address and phone number. [...] ..................... ..................... ..................... ..................... ..................... ..................... ............... Electrical Line Mechanic Note From Melanie Dong: Sent to a [...] lower extremities due to neuropathy. Pt denies crockre, dizziness, cp, sob, n/v/d, abd pain, fever, or loc. Pt is advised we are unable to offer any pain medication as we only carry nsaids and Tylenol. Pt denies having a pain doctor, and states he does not know his healthcare science specialist. BP:144/86, P: 89, RR:18, SpO2:96% RA, T:97.9; Head: unremarkable; Lung sounds: clear bilaterally; Abdomen: soft, non-tender, no distention; Back: no deformities noted; Extremities: limited sensation in lower extremities at baseline; Skin: pink, warm, dry; [facility] consulted and will send note to healthcare science specialist. Pt advised to take Diphenhydramine 50mg to help him sleep as pt states he usually only takes 25mg. Red flags discussed. Pt has no further questions. ..................... ..................... ..................... ..................... ..................... ..................... ............... Disposition: Fulfilled JEAN MARIE WEBB MD [address] [place] [address],[address] [facility], [place], [address], [employer] 06/03/2024 20:44:30
--- OUTSIDE RECORDS SUMMARY | 2024-08-24 11:03 | XMS_ITS ---
Author Organization [facility] Address [address] [place] [address] Care Team Providers Care Non Destructive Testing Engineer Name Role Phone JULIANE MILES Unavailable [phone] Encounters Encounter Location Date Provider Diagnosis [facility] [address] [facility] [address] [place] [address] 08/06/2023 JULIANE MILES PLAN OF TREATMENT No Information Progress Notes * GAB JOHNOB: [birth year] (44 yo M)Acc No.[id number]:08/06/2023 Patient:??VISHAL JOHN Provider:??JULIANE MILES NP :1980?Age:43 Y?Sex:Ma le Date:08/06/2023 Address:[address] [place], [place] [id number] Subjective: * Chief Complaints: * ? * Medical History:?? Objective: Assessment: Plan: * Treatment: * Images: Billing Information: * Visit Code:?? * Procedure Codes:?? * Sign off status: Pending * Provider:??JULIANE MILES NP Date:??07/19
== END 2024-08-24 11:30 | disposition home or self-care (01) ==
PROVIDERS: PCP Internal Medicine; Visit Provider Nurse Practitioner Family
DX: G62.89 Other specified polyneuropathies (principal); R20.0 Anesthesia of skin; M54.2 Cervicalgia; M54.9 Dorsalgia, unspecified
CPT/HCPCS: 99214

== ENCOUNTER → 2024-08-24 10:05 | Outpatient (BNVA) | payer OTHER, SELFPAY | PROVIDERS: PCP Internal Medicine; Visit Provider Nurse Practitioner Family | DX: G62.89 Other specified polyneuropathies (principal); R20.0 Anesthesia of skin; M54.2 Cervicalgia; M54.9 Dorsalgia, unspecified | CPT/HCPCS: 99212 ==

== ENCOUNTER 2025-03-01 10:52 | Outpatient (AMB) | payer OTHER, SELFPAY ==
--- OUTSIDE RECORDS SUMMARY | 2025-02-27 23:59 | XMS_ITS | Continuity of Care Document ---
Author Organization [facility] Address [address] [place] [address]- Care Team Providers Care Meter Attendant Name Role Phone Kevin MIXON, Dariana Demarco Primary Care Physician [phone] [place] [facility] [place]): [place] 02/27/25 [facility] [address] [place] [id number] Attending Physician: Kerri Montilla Admitting Physician: Kerri Montilla Referring Physician: Kerri Montilla Encounter Type: Triage Allergies, Adverse Reactions, Alerts Substance Criticality Severity Reaction Reaction Severity Status Keflex High criticality Severe rash Act bishop Immunizations Given and Recorded Vaccine Date Status Refusal Reason SARS-CoV-2 (COVID-19) mRNA-1273 vaccine 07/17/21 R ecorded SARS-CoV-2 (COVID-19) mRNA-1273 vaccine 07/17/21 R ecorded SARS-CoV-2 (COVID-19) mRNA BNT-162b2 vac 12/29/20 Recorded SARS-CoV-2 (COVID-19) mRNA BNT-162b2 vac 12/29/20 Recorded SARS-CoV-2 (COVID-19) mRNA BNT-162b2 vac 12/08/20 Recorded SARS-CoV-2 (COVID-19) mRNA BNT-162b2 vac 12/08/20 Recorded influenza virus vaccine, inactivated 05/10/20 Clay rded influenza virus vaccine, inactivated 05/10/20 Clay rded influenza virus vaccine, inactivated 04/15/18 Clay rded influenza virus vaccine, inactivated 04/15/18 Clay rded influenza virus vaccine, inactivated 1 06/04/07 Gi nico influenza virus vaccine, inactivated 06/04/06 Give n Influenza Vaccine (oldterm) 2 07/13/08 Given Tet/Diphth/Acel, Pertussis (oldterm) 3 09/29/07 Gi nico 1Admin Note: VIS GIVEN 2Admin Note: VIS given 3Admin Note: VIS given.mfg=[employer] Medications albuterol CFC free 90 mcg/inh inhalation aerosol 2, puffs, Inhalation, Every 4 hours, PRN, or cough, # 1 each, Refills 0, Tot. Refills 0, Maintenance, 09/27/22 9:33:00 AM EST, Route to Pharmacy Electronically, [id number], [facility]/pharmacy #[id number], 193, cm, 09/27/22 9:16:00 EST, Height, 173.6, kg, 01/09/22 15:08:00 EDT, Dry Weight Start Date: 09/27/22 Stop Date: 10/27/22 Status: Ordered Quantity: 1.0 Unit: each Repeat number: 1 amitriptyline 100 mg oral tablet 1 tablet = 100 mg, By Mouth, Daily at bedtime, # 30 tablet, 0 Refills, Maintenance, 10/15/21 1:58:00AM EST, Tablet, Partial fill upon patient request if the prescription is for a schedule II opioid drug. Start Date: 10/15/21 Status: Ordered Quantity: 30.0 Unit: tablet Repeat number: 1 Benadryl Capsule By Mouth, Every 6 hours, Refills 0, Maintenance, 09/25/24 10:27:00 AM EST, Partial fill upon patient request if the prescription is for a schedule II opioid drug. Start Date: 09/25/24 Status: Ordered Repeat number: 1 duloxetine 60 mg oral enteric coated capsule 1 capsule = 60 mg, By Mouth, Daily, # 30 capsule, 0 Refills, Maintenance, 02/22/21 12:05:00 AM EDT, EC Capsule, Partial fill upon patient request if the prescription is for a schedule II opioid drug. Start Date: 02/22/21 Status: Ordered Quantity: 30.0 Unit: capsule Repeat number: 1 Eliquis 5 mg oral tablet 1 tablet = 5 mg, By Mouth, 2 times a day, # 60 tablet, 0 Refills, Maintenance, 02/22/21 12:05:00 AM EDT, Tablet, Partial fill upon patient request if the prescription is for a schedule II opioid drug. Start Date: 02/22/21 Status: Ordered Quantity: 60.0 Unit: tablet Repeat number: 1 gabapentin 400 mg oral capsule 400 mg, 1, capsule, By Mouth, 3 times a day, # 120 capsule, Refills 0, Maintenance, 02/22/21 12:05:00AM EDT, Partial fill upon patient request if the prescription is for a schedule II opioid drug. Start Date: 02/22/21 Status: Ordered Quantity: 120.0 Unit: capsule Repeat number: 1 GlipiZIDE By Mouth, Daily, 0 Refills, Maintenance, 09/25/24 10:26:00 AM EST, Partial fill upon patient request if the prescription is for a schedule II opioid drug. Start Date: 09/25/24 Status: Ordered Repeat number: 1 hydroCHLOROthiazide 12.5 mg oral capsule 1 capsule = 12.5 mg, By Mouth, Daily, # 30 capsule, 0 Refills, Maintenance, 02/22/21 12:05:00 AM EDT,Capsule, Partial fill upon patient request if the prescription is for a schedule II opioid drug. Start Date: 02/22/21 Status: Ordered Quantity: 30.0 Unit: capsule Repeat number: 1 Inderal LA 160 mg oral capsule, extended release 160 mg, 1, capsule, By Mouth, Daily, # 30 capsule, 11 Refills Start Date: 09/08/08 Stop Date: 09/03/09 Status: Ordered Quantity: 30.0 Unit: capsule Repeat number: 12 Latuda 40 mg oral tablet 1 tablet = 40 mg, By Mouth, Daily, # 30 tablet, 0 Refills, Maintenance, 02/22/21 12:05:00 AM EDT, Tablet, Partial fill upon patient request if the prescription is for a schedule II opioid drug. Start Date: 02/22/21 Status: Ordered Quantity: 30.0 Unit: tablet Repeat number: 1 Mounjaro 12.5 mg/0.5 mL subcutaneous solution = 12.5 mg, Subcutaneous Injection, Every week, rotate injection sites, # 4 each, 5 Refills, Maintenance, 12/22/24 12:45:00 PM EDT, Solution, [facility]/pharmacy #[id number], Partial fill upon patient request if theprescription is for a schedule II opioid drug., 194, cm, 12/09/24 11:40:00 EDT, Height, 194.5, kg, 12/09/24 11:40:00 EDT, Dry Weight Start Date: 12/22/24 Stop Date: 06/20/25 Status: Ordered Quantity: 4.0 Unit: each Repeat number: 6 SUMAtriptan 100 mg oral tablet 12 each, 0 Refill(s), TAKE 1 TABLET AT ONSET OF MIGRAINE, MAY REPEAT DOSE ONCE AFTER 2 HOURS, IF NEEDED., 0 Refills, 09/25/24 10:26:00 AM EST, Partial fill upon patient request if the prescription is for a schedule II opioid drug. Start Date: 09/25/24 Status: Ordered Repeat number: 1 Testosterone Cypionate 200 mg/mL intramuscular solution See Instructions, INJECT 200MG (1ML) INTRAMUSCULARLY EVERY 14 DAYS, # 2 mL, 5 Refills, Maintenance,07/07/24 10:44:00 AM EST, [facility]/pharmacy #[id number], 194, cm, 02/18/24 13:56:00 EDT, Height, 206.8, kg, 02/18/24 13:56:00 EDT, Dry Weight Start Date: 07/07/24 Status: Ordered Quantity: 2.0 Unit: mL Repeat number: 6 Testosterone Cypionate 200 mg/mL intramuscular solution See Instructions, INJECT 200MG (1ML) INTRAMUSCULARLY EVERY 14 DAYS, # 2 mL, 5 Refills, Maintenance,01/04/25 9:24:00 AM EDT, [facility]/pharmacy #[id number], 194, cm, 12/22/24 12:44:00 EDT, Height, 194.5, kg, 12/09/24 11:40:00 EDT, Dry Weight Start Date: 01/04/25 Status: Ordered Quantity: 2.0 Unit: mL Repeat number: 6 Vitamin D3 2000 intl units oral tablet 0 Refills, Maintenance, 02/22/21 12:05:00 AM EDT, Partial fill upon patient request if the prescription is for a schedule II opioid drug. Start Date: 02/22/21 Status: Ordered Repeat number: 1 Lizettearen Arthritis Pain 1% topical gel = 2 Gm, Topically, 4 times a day, not to exceed 8 grams/day/single joint of upper extremities, # 240 Gm, 0 Refills, Maintenance, 03/23/23 2:41:00 PM EDT, [facility]/pharmacy #[id number], Partial fill upon patient request if the prescription is for a schedule II opioid drug., 2 Gm Topically 4 times a day,Instr:notto exceed 8 grams/day/single joint of upper extremities, 193, cm, 03/23/23 14:19:00 EDT, Height, 173.6, kg, 01/09/22 15:08:00 EDT, Dry Weight Start Date: 03/23/23 Status: Ordered Quantity: 240.0 Unit: g Repeat number: 1 Problem List Condition Confirmation Course Effective Dates Status H ealth Status Informant Arthritis Confirmed Active Asthma Confirmed Active Bad memory Confirmed Active Case management, DM: Kaylah Basilio (Human Library Sales Consultant), Confirmed Active Depression per neuropsych eval Confirmed Active DYSPEPSIA AND OTHER SPECIFIED DISORDERS OF FUNCTION OF STOMACH Confirmed 11/25/06 Active EXPLOSIVE PERSONALITY DISORDER Confirmed 01/15/07 Active Hyperglycemia Confirmed Active Hypogonadism Confirmed Active Klinefelter's syndrome 1 Confirmed 03/11/07 Active Mental disorder, Cognitive NOS per 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 Confirmed Active Obese build Confirmed Active Rhinitis Confirmed 01/15/07 Active Severe obesity Confirmed Active 1? ambiguous genitalia vs undesdended testes. Urology referral made. Social History Social History Type Response Smoking Status Former smoker, quit more than 30 days ago entered on: 02/22/22 Sex Male Sex Representation Male (finding) Laboratory * Event Display: Laboratory Result Scanned Authored Date: * Event Display: Non BH Lab Results Authored Date: Radiology * Event Display: Ultrasound Neck, Non-BH Authored Date: Patient Care team information Care Team Personnel Name: Naty Vazquez RN Position: [facility] RN Member Role: Primary Care Nurse Name: Kevin MIXON, Dariana Pal Position: Reference Physician Member Role: PCP Address: [address] [place] [address], [address] [place], [place], [address] Telecom: Name: Omar YING, Luisa Position: S RN Member Role: Primary Care Nurse Care Team Related Persons Name: BRANDON PISANO Name: UNKNOWN, FAVIOLA Name: BECK MIJARES [facility] LEAD PERSON Insurance Providers Guarantor name: VISHAL JOHN [employer] Plan Information #: 1 Payer: [facility] Payer Identifier: NA Member Number: [id number] Group Number: [id number] Subscriber Identifier: [id number] Relationship to Subscriber: self Coverage Type: Medicare Managed Care (Includes Medicare Advantage Plans) Coverage Verification Date: NA Telecom: NA Address: NA
--- NOTE | 2025-03-01 10:52 | A.OFFVIS_ITS ---
Vital Signs 03/01/25 10:53 Height 6 ft 4 in BMI Reason not done Patient refused/unable BP 140/88 H Blood Pressure Location Rt brachial Position Sitting Pulse 97 Pulse Source Pulse Oximeter Pulse Oximetry (%) 97 Oxygen Delivery Method Room Air Intake Visit Reasons: Follow Up 6mo Intake Note: Patient presents to the office today for a 6 month follow up for Axonal sensorimotor neuropathy. Allergies cephalexin Allergy (Intermediate, Verified 03/01/25 10:56) Rash Keflex Allergy (Unknown, Uncoded 03/01/25 10:56) itching Medication List - Last Reconciled 03/01/25 by LISA Valadez acetaminophen mg PO apixaban (Eliquis) 5 mg PO BID blood sugar diagnostic (FreeStyle Lite Strips) As directed cholecalciferol (vitamin D3) 50 mcg PO DAILY clotrimazole 1% 1 appl topical BID cyanocobalamin (vitamin B-12) 500 mcg PO DAILY 30 days diphenhydramine HCl (Benadryl) 25 mg PO BEDTIME PRN duloxetine 60 mg PO BID fluticasone propionate 50 mcg/actuation (Allergy Relief (fluticasone)) 2 sprays intranasal DAILY gabapentin 400 mg PO TID glipizide ER 5 mg PO BID hydrochlorothiazide 12.5 mg PO DAILY ketoconazole 2% 1 appl topical BID ketoconazole 2% 1 appl topical lancets (FreeStyle Lancets) As directed lurasidone mg PO miconazole nitrate 2% 1 spray topical DAILY mupirocin 2% 1 appl topical BID propranolol ER 160 mg PO DAILY propranolol ER 160 mg PO DAILY syringe with needle As directed testosterone cypionate mg IM tirzepatide (Mounjaro) 12.5 mg subcut QWEEK zinc oxide 13% 1 appl topical BID-QID PRN HPI Comments Details: History of Present Illness The patient is a 44-year-old male presenting with a follow-up visit for 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 Patient is accompanied by his [facility] legal support specialist. The patient reports persistent numbness in both lower extremities, which has been ongoing since the last visit. However, laila ruelas's dates the bilateral lower extremity discomfort is not as bothersome. He is using Tylenol 500 mg twice a day which helps with back pain and leg discomfort some.. Although he is compliant with gabapentin 400 mg 3 times a day, he states this is not helpful. Thus, his PCP increased his duloxetine to 120 mg total daily dose. Of note, he has recently been taken off of amitriptyline 100 mg daily as it was exacerbating migraines. He has not yet had rheumatology consult regarding previous positive high titer DOMINGO. It appears the office had called in left him a message to call back to verna motta, but he was unaware of this. The patient also suffers from cervicalgia and chronic back pain, which has been present for an extended period but it has not been bothersome as much recently. X-rays in August 2024 revealed degenerative changes in the cervical through lumbar spine, with no fractures. Patient notes recent success in a weight loss regimen potentially decreasing his back pain. X-ray also showed possible renal calculi, which he endorses a history of, though he has experienced no recent abdominal pain or symptoms suggestive of renal colic. The patient reports a gradual weight loss, attributed both to medication (Mounjaro) and intentional efforts, but associated with stress and intermittent episodes of depression. The patient experiences episodic migraines , which are not associated with photophobia, phonophobia, nausea or vomiting. approximately bi-weekly, lasting all day and occasionally extending into the next day. Migraines are not currently managed effectively by sumatriptan due to its necessity to be taken at the onset, which is not always timely achieved by the patient. The headaches have been associated with dizziness on standing, possibly related to the patient's pharmacologic regimen and weight loss medication. The patient has a history of sleep apnea managed with CPAP therapy, though the device requires updating. He mentions a recently had a sleep study, and was looking for results, however this was ordered by possibly his PCP office. Social History - Supported by a caregiver provided through [facility] - Reports stress and episodic depression - Engaged in weight loss management via Mounjaro - Attempts to maintain adequate hydration - Experience with healthcare and frequent appointments reportedly high in August Review of Systems - Neurologic: Reports numbness in bilateral lower extremities, migraines, dizziness. Denies light/sound sensitivity with headaches. - Musculoskeletal: Reports cervicalgia and back pain, improved with weight loss. - General: Reports intentional yet stress-associated weight loss. - Gastrointestinal: Denies recent abdominal pain. - Renal: Reports history of kidney stones. Results - paredes spine X-ray (August 2024): Showed osteophyte and degenerative changes in the lumbar spine, possible renal calculus noted. [facility] Medical History Positive DOMINGO (antinuclear antibody) Social History Alcohol intake: current Comment: Social drinking Patient Tobacco Use Status: Former Tobacco user Physical Exam Vital Signs: Last Vital Signs Pulse 97 03/01/25 10:53 BP 140/88 H 03/01/25 10:53 Pulse Ox 97 03/01/25 10:53 Oxygen Delivery Method Room Air 03/01/25 10:53 Const General: cooperative and no acute distress Orientation/consciousness: patient oriented x3 HEENT Head: Yes normocephalic Resp Effort & Inspection: normal respiratory effort and able to speak in complete sentences Neuro Other: BLE swelling and distal numbness. Pt sitting upright in power w/c. General: patient oriented x3 Psych Speech and movement: Normal speech and movement present Affect: normal affect Attitude: cooperative Assessment & Plan Assessment & Plan (1) Axonal sensorimotor neuropathy: Code(s): G62.89 - Other specified polyneuropathies Category: Medical (2) Numbness of both lower extremities: Comment: Left leg more numbness than right leg Code(s): R20.0 - Anesthesia of skin Category: Medical (3) Cervicalgia: Code(s): M54.2 - Cervicalgia Category: Medical (4) Back pain: Code(s): M54.9 - Dorsalgia, unspecified Category: Medical Plan Discussion Notes In today's visit, I addressed the patient's ongoing symptoms of bilateral lower extremity neuropathy and the associated difficulties with his medication regimen. I discussed the need for effective management of migraines, highlighting the importance of timely administration of sumatriptan and suggested non-pharmacological interventions such as migraine cooling caps. The potential autoimmune component of the patient's symptoms was addressed, highlighting the significance of the positive DOMINGO and the necessity of rheumatologic evaluation. I discussed the logistical challenges experienced by the patient regarding his appointments, including follow-ups with a manager data warehousing for his potential autoimmune condition. I emphasized the importance of maintaining adequate hydration, particularly when taking Mounjaro. Plan and patient instructions: Encouraged pt to continue to optimize his diabetic and weight control w/ his PCP. * Closely monitor weight management and dehydration risk with Mounjaro, advising increased fluid intake, including 1-2 servings of an electrolyte replacement beverage per day. Encourage adequate follow-up for possible recurrent renal calculi if symptoms develop, which may warrant need for an urological consultation. Patient advised to call rheumatology office to arrange appointment for rheumatology consult. We will recheck labs. Patient has discontinued amitriptyline. Continue Vitamin B-12 500mcg po daily supplement. Continue duloxetine 120 mg per day Continue gabapentin 600 mg q.i.d. May continue Tylenol 500 mg twice a day as needed, though did discuss that frequent Tylenol use may exacerbate migraine and headache symptoms. Patient to continue to follow-up with alternate neurologist for his headache/migraine treatment, in the meantime patient may benefit from trying an [id number] migraine cap cooling devices for symptomatic relief and timely administration of sumatriptan as needed. Future considerations: PT, referal to [facility] pain management for eval for Qutenza (capsaicin) 8% topical system. Pt to follow-up in 6 months or sooner prn. Orders: Orders Methylmalonic Acid Today E11.9 - Type 2 diabetes mellitus without complications, E53.8 - Deficiency of other specified B group vitamins, I10 - Essential (primary) hypertension, R76.8 - Other specified abnormal immunological findings in serum Erythrocyte Sedimentation Rate Today E11.9 - Type 2 diabetes mellitus without complications, E53.8 - Deficiency of other specified B group vitamins, I10 - Ess ential (primary) hypertension, R76.8 - Other specified abnormal immunological findings in serum Complete Blood Count Auto Diff Today E11.9 - Type 2 diabetes mellitus without complications, E53.8 - Deficiency of other specified B group vitamins, I10 - Essential (primary) hypertension, R76.8 - Other specified abnormal immunological findings in serum Comprehensive Met. Panel Today E11.9 - Type 2 diabetes mellitus without complications, E53.8 - Deficiency of other specified B group vitamins, I10 - Essential (primary) hypertension, R76.8 - Other specified abnormal immunological findings in serum Vitamin B6 Today D64.9 - Anemia, unspecified, E11.9 - Type 2 diabetes mellitus without complications, E53.8 - Deficiency of other specified B group vitamins, I10 - Essential (primary) hypertension, R76.8 - Other specified abnormal immunological findings in serum Vitamin B12 and Folate Today E11.9 - Type 2 diabetes mellitus without complications, E53.8 - Deficiency of other specified B group vitamins, I10 - Essential (primary) hypertension, R76.8 - Other specified abnormal immunological findings in serum C Reactive Protein Today E11.9 - Type 2 diabetes mellitus without complications, E53.8 - Deficiency of other specified B group vitamins, I10 - Essential (primary) hypertension, R76.8 - Other specified abnormal immunological findings in serum Vitamin B1 Today E11.9 - Type 2 diabetes mellitus without complications, E53.8 - Deficiency of other specified B group vitamins, I10 - Essential (primary) hypertension, R76.8 - Other specified abnormal immunological findings in serum Coding Level of Care Code Est Pt Level 4 (03195) Diagnoses Axonal sensorimotor neuropathy G62.89 Numbness of both lower extremities R20.0 Cervicalgia M54.2 Back pain M54.9
[2025-03-01 10:53] VITALS: BP 140/88; PULSE 97; O2SAT 97
--- OUTSIDE RECORDS SUMMARY | 2025-03-01 11:49 | XMS_ITS | Clinical Summary ---
Author Organization [facility] Address [address] [place] [address] Care Team Providers Care Optometrist/Practice Owner Name Role Phone Dariana Brown MD Primary Care Provider [phone] Allergies Active Allergy Reactions Criticality Noted Date Comments Cephalexin 10/28/2017 Medications Medication Sig Dispensed Refills Start Date End Date Status propranolol (INDERAL LA) 120 MG 24 hr capsule Take 160 mg by mouth daily. 0 Active duloxetine (CYMBALTA) DR capsule 30 mg Take 30 mg by mouth daily. 0 Active ARIPiprazole (ABILIFY) 15 MG tablet Take 15 mg by mouth daily. 0 Active warfarin (COUMADIN) 4 MG tablet Take 4 mg by mouth daily. 0 Active melatonin 3 MG TABS tablet Take 3 mg by mouth every night at bedtime. 0 Active hydroCHLOROthiazide (HYDRODIURIL) tablet 12.5 mg Take 12.5 mg by mouth daily. 0 Active gabapentin (NEURONTIN) 600 MG tablet Take 600 mg by mouth 2 (two) times a day. 0 Active acetaminophen (TYLENOL) 325 MG tablet Take 650 mg by mouth every 4 (four) hours as needed for pain. 0 Active cholecalciferol (VITAMIN D3) 1000 units tablet Take 1,000 Units by mouth daily. 0 Active TESTOSTERONE IM Inject into the muscle. 0 Active Fluticasone Propionate, Inhal, (FLOVENT IN) Inhale into the lungs. 0 Active albuterol (PROVENTIL HFA;VENTOLIN HFA) 108 (90 Base) MCG/ACT inhaler Inhale 2 puffs into the lungs every 6 (six) hours as needed for wheezing. 0 Active Active Problems Problem Noted Date Diagnosed Date Other pulmonary embolism without acute cor pulmo nale 03/14/2019 Acute deep vein thrombosis ( DVT) of proximal vein of left lower extremity 03/14/2019 Social History Tobacco Use Types Packs/Day Years Used Date Smoking Tobacco: Never Smokeless Tobacco: Never Alcohol Use Standard Drinks/Week Comments Yes 0 (1 standard drink = 0.6 oz pur e alcohol) social Sex and Gender Information Value Date Recorded Sex Assigned at Not on file Gender Identity Not on file Sexual Orientation Not on file Job Start Date Occupation Industry Not on file Not on file Not on file Last Filed Vital Signs Vital Sign Reading Time Taken Comments Blood Pressure 148/85 10/08/2019 3:15 PM EST Pulse 83 10/08/2019 3:15 PM EST Temperature 36.2 C (97.1 F) 10/08/2019 3:15 PM EST Respiratory Rate - - Oxygen Saturation - - Inhaled Oxygen Concentration - - Weight 207.7 kg (458 lb) 10/08/2019 3:15 PM EST Height 193 cm (6' 4 ) 10/08/2019 3:15 PM EST Body Mass Index 55.75 10/08/2019 3:15 PM EST Plan of Treatment Health Maintenance Due Date Last Done Comments Hepatitis B Vaccines (1 of 3 - 3-dose series) 1979 Hepatitis C Screening 1979 COVID-19 Vaccine (#1) 1979 Depression Screening 1991 BMI Counseling 1997 Preventative Health Evaluation 1997 DTap / Tdap / Td (1 - Tdap) 1998 Colon Cancer Screening (Colonoscopy) 2024 Influenza Vaccine (#1) 2025 Pneumococcal Vaccine Aged Out No long er eligible based on patient's age to complete this topic RSV Ped < 20 months Aged Out No longe r eligible based on patient's age to complete this topic Care Teams Optometrist/Practice Owner Relationship Specialty Start Date End Date Dariana Brown MD [address] [place] [phone] PCP - General Internal Medicine 10/28/17
--- OUTSIDE RECORDS SUMMARY | 2025-03-01 11:49 | XMS_ITS | Data Portability ---
Author Organization [employer] Address [address] [place] [address] Care Team Providers Care Urgent Care Nurse Practitioner Name Role Phone HIM CCA OTHER RASTA FRANCO Primary Care Provider [phone] Assessment Encounter Date Assessment Date Assessment LastModified by Organization Details LastModified Time 01/23/2023 01/23/2023 42 YOM with SENIOR DENTIST daily, being seen for swelling above the [...] assessment and plan as documented by the multimedia teacher. I provided real-time medical direction for this encounter and was immediately available to provide additional phone-based assistance as needed. 43M with right forearm pain x 1 month. No trauma or injury. Pt was seen at [facility] and xrays were negative. Pt was [...] Assessment and Plan as documented by the Boiler Repair Supervisor. Patient given the opportunity to ask questions. Our service contacted for an assessment of: pain mangement As per above, patient With issues of chronic pain management. Unfortunately cannot take Toradol and other options that this service has our what he is already doing. Main issue is not sleeping well and decrease in functional status. Per multimedia teacher on the scene, Vital signs are stable, [...] None recorded. Imaging None recorded. Medication Orders acetaminoph en 325 mg tablet 2022 023 [id number], [address] [place], [address], 3 19:30:53 doxycycline monohydrate 100 mg capsule 2022 023 [email or web address] 5 Not available 3 15:06:59 doxycycline monohydrate 100 mg capsule 2022 023 [id number], [address] [place], [address], 3 15:07:59 Patient TargetsNo targets recorded. Patient InstructionsNo instructions recorded. Reason for Referral None Reported. Medical Equipment None Reported. Allergies Allergen ID Allergen Name Allergen Category Reaction Reaction Severity Criticality Documentation Date Start Date Code Code System Note Provider Name and Address Organization Details Recorded Time 3761 cephalexi n medicatio n Not available Not [...] Available Not Available No t Available Hypodermic Blanchard 18 gauge x 1 1/2 USE DIRECTED [...] BD SafetyGlide Needle 18 gauge x 1 /2 TO DRAW UP TESTOSTERON E EVERY 2 [...] t Available Vitals Date Recorded Heart rate Respiratory rate Oxygen saturation Oxygen saturation in Arterial blood by Pulse oximetry Body weight Body temperature Systolic And Diastolic Provider Name and Address Organization Details Last Updated DateTime 4 88 /min 16 /min 96 % 96 % 825954. 28 g 97.5 [degF] 164/82 mm[Hg] Not Available [facility] 4 20:51:27 Date Recorded Heart rate Body temperature Respiratory rate Oxygen saturation Oxygen saturation in Arterial blood by Pulse oximetry Body weight Systolic And Diastolic Provider Name and Address Organization Details Last Updated DateTime 3 88 /min 98.2 [degF] 18 /min 96 % 96 % 297472. 376 g 158/94 mm[Hg] Not Available [facility] 3 15:01:53 Date Recorded Heart rate Oxygen saturation Oxygen saturation in Arterial blood by Pulse oximetry Body height Body temperature Respiratory rate Body weight Heart rate Oxygen saturation Oxygen saturation in Arterial blood by Pulse oximetry Respiratory rate Body height Provider Name and Address Organization Details Last Updated DateTime 2 78 /min 96 % 96 % 193.04 cm 97.7 [degF] 20 /min 812418. 4 g 78 /min 96 % 96 % 20 /min 193.04 cm Not Available [facility] [employer] [facility] 2 16:02:16 Date Recorded Body weight Body temperature Systolic And Diastolic Systolic And Diastolic Provider Name and Address Organization Details Last Updated DateTime 03/26/2022696714.4 g 97.7 [degF] 136/67 mm[Hg] 136/67 mm[Hg] Not Available [facility] 2 16:02:16 Date Recorded Oxygen saturation Oxygen saturation in Arterial blood by Pulse oximetry Body weight Heart rate Body height Respiratory rate Systolic And Diastolic Provider Name and Address Organization Details Last Updated DateTime 3 96 % 96 % 266923. 336 g 84 /min 193.04 cm 16 /min 159/88 mm[Hg] Not Available [facility] [employer] [facility] 3 19:25:43 Date Recorded Body weight Heart rate Body temperature Respiratory rate Body height Oxygen saturation Oxygen saturation in Arterial blood by Pulse oximetry Systolic And Diastolic Provider Name and Address Organization Details Last Updated DateTime 4 19900924. 888 g 89 /min 97.9 [degF] 18 /min 193.04 cm 96 % 96 % 144/86 mm[Hg] Not Available [facility] 4 19:44:47 Social History None recorded. Functional Status None recorded. Mental Status None recorded. Family History Nothing Reported. Medical History No medical history recorded. Past Encounters Encounter ID Performer Location Encounter Start Date Encounter Closed Date Diagnosis/Indication Diagnosis SNOMED-CT Code Diagnosis ICD10 Code Diagnosis Note [id number] Rosa Charles MD [facility] [address] [place] [phone] 03/26/2022 15:31:15 04/19/2022 11:55:46 Pain in right arm 844402829 M79.601 diffuse right arm pain x1 mo; worse with clenching fist. no mottling/c hange in color/no change in palpated temp of extremitie s. using hand/arm exacerbate s pain. Pain deep inside denies burning/el ectric sensations . 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 suspect this is related to use of scooter based on descriptio n. Will assist pt in reaching out to PCP as he has reportedly been unable to do so. [id number] Howie Watson MD [facility] - [facility] [address] [place] [phone] 0 01/23/2023 15:01:41 01/24/2023 11:01:17 Cellulitis of forehead 71131013 L03.211 [id number] Angelika Maravilla MD [facility] - [facility] [address] [place] [phone] 05/07/2023 19:25:42 05/08/2023 11:58:55 Pain in right arm 294469138 M79.601 [id number] Cielo Alcazar MD [facility] - [facility] [address] [place] [address] [phone] 0 12/04/2023 20:51:23 12/05/2023 11:15:19 Pain self-management deficit, chronic 06952722 F45.42 [id number] JEAN MARIE WEBB MD Main - [address] [phone] 0 06/03/2024 19:44:44 06/03/2024 21:34:27 Chronic pain syndrome 235464219 G89.4 Evaluation in the field was performed by my multimedia teacher colleague, as noted above, I provided real-time [...] seeing a pain specialist or an orthopedic transit specialist if he has not done so already. Notificati on has been sent to the CRU to send a message to the medicare interviewer, who can request a referral to the [...] Recorded Advance Directives Directive None Recorded Payers Insurance Date Sequence Insurance Name Policy Number Policy Andujar Covered Member ID Andujar Member ID Guarantor Name 01/23/2023 1 [facility] - DOS PRIOR TO 2022 - DUAL ELIGIBLE (MEDICARE REPLACEMENT/AD VANTAGE - HMO) Clem Fuentes [id number] Clem Fuentes 06/04/2024 1 [facility] - DOS ON OR AFTER 2022 - DUAL ELIGIBLE - CORRECTION OPTIONS AND ONE CARE (MEDICARE REPLACEMENT/AD VANTAGE - HMO) Clem Fuentes [id number] Clem Fuentes Notes Date Note Type Note [...] ..................... ..................... ..................... ..................... ..................... ..................... ............... Boiler Repair Supervisor Note: Sent to a call for a [...] or Motrin due to being on Eliquis. [facility] orders Tylenol 1gm PO and will reach out to care team to request an appt with PCP for further follow up/treatment plan. Pt advised to take Tylenol 1gm q6hrs as needed for pain. Acetaminophen 1gm administered without incident. Red flags discussed. Pt has no further questions. ..................... ..................... ..................... ..................... ..................... ..................... ............... Disposition: Fulfilled Rosa Charles MD [address] [facility],[address], [place], [address], [facility] [employer] 03/26/2022 23:18:55 01/23/2023 text/html HPI: 42 y.o. [...] ..................... ..................... ..................... ..................... ..................... ..................... ............... Boiler Repair Supervisor Note From Vikas Mendoza: Pt presents A@Ox4. [place] warm and dry. Pt c/o swelling above [...] on signs that would indicate the ER Boiler Repair Supervisor Allergies: Cephalexin ..................... ..................... ..................... ..................... ..................... ..................... ............... Disposition: Fulfilled Howie Watson MD [address] [facility],[address], [place], [address], [place] [facility] - RY THEODORE 01/23/2023 16:32:52 05/07/2023 text/html CRC Nursing Assessment: Chief Complaints: Pain PMH: Diabetes, COPD/Asthma, Hypertension Allergies: Cephalexin Pain Assessment: Level 8 out of 10 Comments: Exacerbation to right arm since yesterday. X-ray taken 1 month at [facility]. No trauma or injuries. Ran out of Tylenol 325mg last week. Tylenol was helping to alleviate pain. ..................... ..................... ..................... ..................... ..................... ..................... ............... Boiler Repair Supervisor Note From Deon Clayton: Pt reports intermittent 8.5/10 right forearm pain for about one month. Pt was seen at [facility] ED one month ago, negative x-rays, prescribed APAP 325 mg q8h and he ran out last week. Pt sts APAP was treating the pain effectively. Pt sts there was never a precipitating event, ie no injury or suspected cause. Pt also goes on to say that sometimes the pain jumps to his left forearm. Pt is requesting more APAP today. Pt is alert, NAD. VSS. Afebrile. Neuro exam normal, possibly some baseline cognitive delay. Lungs CTA. No ecchymosis, erythema, or edema. Pt has strong pulses and full ROM in both arms. Pt treated with APAP 500 mg PO and C sent rx to pharmacy. Pt instructed to f/u with PCP tomorrow. ..................... ..................... ..................... ..................... ..................... ..................... ............... Disposition: Alethea Maravilla MD [address] [facility],[address], [place], [address], [employer] 05/07/2023 22:08:56 12/04/2023 text/html CRC Nurse Triage Notes (Zo Tena): Chief Complaints: Pain PMH: Diabetes, COPD/Asthma, Hypertension Allergies: Cephalexin Pain Assessment: Level 8 out of 10 Comments: Lead Investigator verified name//address. Member reports body pain all over, especially back. Exacerbation of pain with position changes. Difficulty sleeping due to pain. Pain comes and goes over the past week. States he is unable to reach PCP. Took APAP 650mg today. ..................... ..................... ..................... ..................... ..................... ..................... ............... Boiler Repair Supervisor Note From Vikas Mendoza: Pt co all [...] Pt advised to follow up with pcp. Boiler Repair Supervisor Allergies: Cephalexin ..................... ..................... ..................... ..................... ..................... ..................... ............... Disposition: Fulfilled Cielo Alcazar MD [address] [place] [address],[address], [place], [address], [employer] 12/04/2023 21:01:21 06/03/2024 text/html CRC Nurse Triage Notes (Ro Hoffmnan): Reason For Request: Pain Chief Complaints: Pain PMH: Diabetes, COPD/Asthma, Hypertension Allergies: Cephalexin Pain Assessment: Level 10 out of 10 Comments: Lead Investigator verified the member's name//address and phone number. [...] ..................... ..................... ..................... ..................... ..................... ..................... ............... Boiler Repair Supervisor Note From Melanie Dong: Sent to a [...] and states he does not know his medicare interviewer. BP:144/86, P: 89, RR:18, SpO2:96% RA, T:97.9; Head: unremarkable; Lung sounds: clear bilaterally; Abdomen: soft, non-tender, no distention; Back: no deformities noted; Extremities: limited sensation in lower extremities at baseline; Skin: pink, warm, dry; [facility] consulted and will send note to medicare interviewer. Pt advised to take Diphenhydramine 50mg to help him sleep as pt states he usually only takes 25mg. Red flags discussed. Pt has no further questions. ..................... ..................... ..................... ..................... ..................... ..................... ............... Disposition: Fulfilled GENTA BACI, MD [address] [facility],[address], [place], [address], [facility]ER[facility], RY 06/03/2024 20:44:30
--- OUTSIDE RECORDS SUMMARY | 2025-03-01 11:49 | XMS_ITS | Encounter Summary ---
Author Organization [facility] Address [address] [place] [address] Care Team Providers Care Washer Engineer Helper Name Role Phone Dariana Brown MD Primary Care Provider [phone] Encounter Details Date Type Department Care Team ([facility] st Contact Info) Description 01/25/2025 Telephone Internal Medicine - [place] [address] [facility] [place] [phone] Dariana Brown MD [address] [facility] [address] [facility] [address] [place] [phone] Social History Tobacco Use Types Packs/Day Years Used Date Smoking Tobacco: Former Smokeless Tobacco: Never Alcohol Use Standard Drinks/Week Comments Not Currently 1 (1 standard drink = 0.6 oz pur e alcohol) Interpersonal Safety Answer Date Record ed Physical Abuse 02/07/2025 Verbal Abuse 02/07/2025 Sex and Gender Information Value Date Recorded Sex Assigned at Not on file Legal Sex Male 4:24 AM EST Gender Identity Not on file Sexual Orientation Not on file documented as of this encounter Functional Status * Are you deaf or do you have serious difficulty hearing? Answer Date of Assessment Author Yes 08/14/2024 1:55 PM Mati Ramos RN * Are you blind or do you have serious difficulty seeing, even when wearing glasses? Answer Date of Assessment Author No 08/14/2024 1:55 PM Mati Ramso RN * Do you have serious difficulty walking or climbing stairs? Answer Date of Assessment Author Yes 08/14/2024 1:55 PM Mati Ramos RN * Do you have serious difficulty dressing or bathing? Answer Date of Assessment Author No 08/14/2024 1:55 PM Mati Ramos RN * Because of a physical, mental, or emotional condition, do you have serious difficulty doing errandsalone such as visiting the doctor? Answer Date of Assessment Author Yes 08/14/2024 1:55 PM Mati Ramos RN documented as of this encounter Mental Status * Because of a physical, mental, or emotional condition, do you have serious difficulty concentrating, remembering, or making decisions? (5 years old or older) Answer Entry Date Author Yes 08/14/2024 1:55 PM Mati Ramos RN documented in this encounter Plan of Treatment Upcoming Encounters Date Type Department Care Team (Late st Contact Info) Description 03/30/2025 11:30 AM EDT Office Visit Internal Medicine [facility] [address] [facility] [address] [place] [phone] Dariana Brown MD [address] [facility] [address] [place] [address] 04/26/2025 2:30 PM EDT Consult Vascular Surgery - [place] [address] [facility] [address] [place] [phone] Nikki Arnett MD [address] [place] [address] documented as of this encounter Visit Diagnoses Not on filedocumented in this encounter Additional Health Concerns Infection Onset Date Last Indicated Resolved Time Respiratory Rule-Out 02/07/2025 02/07/2025 025 11:52 AM EDT COVID-19 Rule-Out 02/07/2025 02/07/2025 02/07/2025 11:52 AM EDT Enterovirus 02/07/2025 02/07/2025 Rhinovirus 02/07/2025 02/07/2025 documented as of this encounter Care Teams Washer Engineer Helper Relationship Specialty Start Date End Date Dariana Brown MD [address] [phone] PCP - General Internal Medicine 01/16/18 documented as of this encounter
== END 2025-03-01 12:01 | disposition home or self-care (01) ==
LOC: HO.HSMS 10:52
PROVIDERS: PCP Internal Medicine; Visit Provider Nurse Practitioner Family
DX: G62.89 Other specified polyneuropathies (principal); R20.0 Anesthesia of skin; M54.2 Cervicalgia; M54.9 Dorsalgia, unspecified
CPT/HCPCS: 99214

== ENCOUNTER 2025-03-01 10:52 | Outpatient (REF) | payer OTHER, SELFPAY ==
[2025-03-01 14:05] LABS: MANUAL DIFF FLAG NO
[2025-03-01 14:11] LABS: Hematocrit 52.5 % (42.0-52.0); Hemoglobin 17.0 g/dl (14.0-18.0); Imm Gran Abs Auto 0.03 X10*3/uL (0.00-0.03); Imm Gran Pct Auto 0.4 % (0.0-0.4); Lymphocytes Absolute Auto 2.0 X10*3/uL (1.2-4.9); Mean Corpuscular HGB Conc 32.4 g/dl (31.0-36.0); Mean Corpuscular Hemoglobin 25.1 pg (27.0-33.0); Mean Corpuscular Volume 77.4 fL (80.0-98.0); NRBC Abs Auto 0.000 X10*3/uL (0.0-0.012); NRBC Pct Auto 0.0 /100WBC (0.0-0.2); Platelet Count 275 X10*3/uL (160-400); Red Blood Count 6.78 X10*6/uL (4.60-5.80); White Blood Count 7.3 X10*3/uL (4.8-10.8)
[2025-03-01 14:48] LABS: Alanine Aminotransferase 46 U/L (0-40); Albumin Level 3.7 g/dL (3.5-5.0); Alkaline Phosphatase 224 U/L (39-117); Anion Gap 13 (12-20); Aspartate Amino Transferase 37 U/L (5-37); Blood Urea Nitrogen 7 mg/dL (9-16); Calcium 9.1 mg/dL (8.4-10.2); Carbon Dioxide 32 mmol/L (22-29); Chloride 97 mmol/L (96-108); Estimated Glomerular Filt Rate > 60; Potassium 4.2 mmol/L (3.3-5.1); Sodium 138 mmol/L (135-145); Total Protein 7.6 g/dL (6.5-8.0)
[2025-03-01 14:56] LABS: Folate 7.4 ng/mL (> or = 4.0); Vitamin B12 907 pg/mL (200-900)
== END 2025-03-01 10:53 | disposition home or self-care (01) ==
LOC: HO.HKASLDS 10:52
PROVIDERS: PCP Internal Medicine; Visit Provider Nurse Practitioner Family
DX: G62.89 Other specified polyneuropathies (principal); E11.49 Type 2 diabetes mellitus with other diabetic neurological complication; G43.909 Migraine, unspecified, not intractable, without status migrainosus; D64.9 Anemia, unspecified; M54.2 Cervicalgia; G89.29 Other chronic pain; M54.9 Dorsalgia, unspecified; E53.8 Deficiency of other specified B group vitamins; I10 Essential (primary) hypertension; R76.8 Other specified abnormal immunological findings in serum; R20.0 Anesthesia of skin; R42 Dizziness and giddiness; Z79.899 Other long term (current) drug therapy; Z79.84 Long term (current) use of oral hypoglycemic drugs
CPT/HCPCS: 36415; 80053; 82607; 82746; 83921; 84207; 84425; 85025; 85652; 86140; 99212